=== PATIENT | male | born 1955 | race Caucasian/White ===

== ENCOUNTER 2022-07-31 09:12 | Outpatient (REF) | payer BC, SELFPAY ==
[2022-07-31 11:16] LABS: Appearance Urine Cloudy; Color Urine Yellow; Glucose Urine UA Negative (Negative); Leukocyte Esterase Urine Negative (Negative); Nitrite Urine Negative (Negative); Specific Gravity - Urine 1.025 (1.005-1.025); Urine Blood Negative (Negative); Urine Ketones Negative (Negative); Urine Protein Negative (Neg-Trace)
[2022-07-31 11:18] LABS: MANUAL DIFF FLAG NO
[2022-07-31 11:40] LABS: Estimated Average Glucose 192 mg/dL; Hemoglobin A1c % 8.3 %
[2022-07-31 11:51] LABS: Basophils Absolute Auto 0.1 X10*3/uL (0.0-0.2); Basophils Percent Auto 0.7 % (0-2); Eosinophils Absolute Auto 0.2 X10*3/uL (0.0-0.4); Eosinophils Percent Auto 2.4 % (0-4); Hematocrit 38.8 % (42.0-52.0); Hemoglobin 13.8 g/dl (14.0-18.0); Imm Gran Abs Auto 0.03 X10*3/uL (0.00-0.03); Imm Gran Pct Auto 0.3 % (0.0-0.4); Lymphocytes Absolute Auto 2.9 X10*3/uL (1.2-4.9); Mean Corpuscular HGB Conc 35.6 g/dl (31.0-36.0); Mean Corpuscular Hemoglobin 32.2 pg (27.0-33.0); Mean Corpuscular Volume 90.4 fL (80.0-98.0); Mean Platelet Volume 9.7 fL (9.4-12.4); Monocytes Absolute Auto 0.5 X10*3/uL (0.1-1.2); Monocytes Percent Auto 5.9 % (2-11); Neutrophils Absolute Auto 5.2 x10*3/uL (2.0-8.3); Neutrophils Percent Auto 58.7 % (45-73); Platelet Count 232 X10*3/uL (160-400); Red Blood Count 4.29 X10*6/uL (4.60-5.80); Red Cell Distribution Width 12.6 % (11.0-16.0); White Blood Count 8.9 X10*3/uL (4.8-10.8)
[2022-07-31 11:59] LABS: Creatinine Urine 201.89 mg/dL; Microalbum/Creatinine Ratio Ur 6.4 ug/mg cr
[2022-07-31 12:08] LABS: Alanine Aminotransferase 51 U/L (0-40); Albumin Level 4.3 g/dL (3.5-5.0); Alkaline Phosphatase 52 U/L (39-117); Anion Gap 15 (12-20); Aspartate Amino Transferase 45 U/L (5-37); Bilirubin Total 0.9 mg/dL (0.0-1.0); Blood Urea Nitrogen 14 mg/dL (9-16); Calcium 9.2 mg/dL (8.4-10.2); Carbon Dioxide 31 mmol/L (22-29); Chloride 98 mmol/L (96-108); Cholesterol 130 mg/dL; Estimated Glomerular Filt Rate > 60; Glucose Fasting 176 mg/dL (60-99); HDL Cholesterol 31 mg/dL; Potassium 3.7 mmol/L (3.3-5.1); Sodium 140 mmol/L (135-145); Total Protein 6.8 g/dL (6.5-8.0); Triglycerides 412 mg/dL; Uric Acid 6.8 mg/dL (3.4-7.0)
[2022-07-31 12:16] LABS: TSH reflex Free T4 1.26 uIU/mL (0.32-4.0)
== END 2022-07-31 09:13 | disposition home or self-care (01) ==
LOC: HO.HMGCLDS 09:12
PROVIDERS: PCP Nurse Practitioner Family; Visit Provider Nurse Practitioner Family
DX: E11.9 Type 2 diabetes mellitus without complications (principal); M10.9 Gout, unspecified
CPT/HCPCS: 36415; 80053; 80061; 81003; 82043; 83036; 84443; 84550; 85025

== ENCOUNTER 2022-08-12 08:43 | Outpatient (REF) | payer BC, SELFPAY ==
--- NOTE | ~2022-08-12 | US_ITS ---
EXAMINATION: US ABDOMEN COMPLETE CLINICAL INFORMATION: Abnormal levels of other serum enzymes. COMPARISON: None available. TECHNIQUE: Real-time imaging of the abdominal viscera. FINDINGS: PANCREAS: The pancreas is obscured by overlying gas. ABDOMINAL AORTA: The distal abdominal aorta is normal caliber. The proximal and mid segment is not visualized. INFERIOR VENA CAVA: IVC is unremarkable. LIVER: The liver is normal in size. The liver contour is normal. There is increased liver echogenicity. No focal hepatic lesion. There is no intrahepatic biliary duct dilatation seen. GALLBLADDER: Surgically absent. COMMON BILE DUCT: Normal in caliber measuring 0.4 cm in diameter. RIGHT KIDNEY: There is an anechoic cyst in midpole measuring 0.60 x 0.54 x 0.47 cm. No hydronephrosis or renal calculi. The kidney measures 11.3 cm in maximum dimension. LEFT KIDNEY: There are multiple anechoic cysts seen. The lower pole cyst measures 4.1 x 4.0 x 3.6 cm. Midpole cyst measures 1.0 x 1.1 x 0.96 cm. Slightly complex Bosniak II upper pole cyst measures 6.5 x 3.7 x 4.3 cm. No hydronephrosis or renal calculi. The kidney measures 11.3 cm in maximum dimension. SPLEEN: Normal. The spleen measures 11.3 cm in maximum dimension. FREE FLUID: None. US/US abdomen complete IMPRESSION: 1. Bilateral renal cysts. Complex cyst upper pole left kidney Bosniak type II. No echogenic stones or hydronephrosis. 2. The rest of the abdominal ultrasound is unremarkable.
== END 2022-08-12 08:44 | disposition home or self-care (01) ==
LOC: HO.HMGCX 08:43
PROVIDERS: PCP Nurse Practitioner Family; Visit Provider Nurse Practitioner Family
DX: R74.8 Abnormal levels of other serum enzymes (principal)
CPT/HCPCS: 76700

== ENCOUNTER 2022-08-14 07:23 | Outpatient (REF) | payer BC, SELFPAY ==
[2022-08-16 08:43] LABS: HBS Num1 0.09 mIU/mL (0-7.99); HBc Num1 0.26 S/CO (0.00-0.79); HBsAGNum1 0.31 S/CO (0.00-0.99); Hepatitis A Antibody IgM 0.12 Index (0-0.79); Hepatitis B Core Antibody Nonreactive (Nonreactive); Hepatitis B Surface Antigen Negative (Negative); ~HepC Num1 0.12 S/CO (0.00-0.79); ~Hepatitis A Antibody IgM Nonreactive (Nonreactive); ~Hepatitis B Surface Antibody NONREACTIVE (Nonreactive); ~Hepatitis C Antibody Nonreactive (Nonreactive)
== END 2022-08-14 07:24 | disposition home or self-care (01) ==
LOC: HO.HMGCLDS 07:23
PROVIDERS: PCP Nurse Practitioner Family; Visit Provider Nurse Practitioner Family
DX: R74.8 Abnormal levels of other serum enzymes (principal)
CPT/HCPCS: 36415; 86704; 86706; 86709; 86803; 87340

== ENCOUNTER → 2022-09-11 08:49 | Outpatient (BNVA) | payer BC, SELFPAY | PROVIDERS: PCP Nurse Practitioner Family; Visit Provider Nurse Practitioner Family | DX: N28.1 Cyst of kidney, acquired (principal) ==

== ENCOUNTER 2022-10-07 09:46 | Outpatient (REF) | payer BC, SELFPAY ==
[2022-10-07 11:28] LABS: MANUAL DIFF FLAG NO
[2022-10-07 11:46] LABS: Basophils Absolute Auto 0.1 X10*3/uL (0.0-0.2); Basophils Percent Auto 0.6 % (0-2); Eosinophils Absolute Auto 0.1 X10*3/uL (0.0-0.4); Eosinophils Percent Auto 1.2 % (0-4); Hematocrit 38.3 % (42.0-52.0); Hemoglobin 13.7 g/dl (14.0-18.0); Imm Gran Abs Auto 0.05 X10*3/uL (0.00-0.03); Imm Gran Pct Auto 0.5 % (0.0-0.4); Immature Retic Fraction 18.2 % (2.3-13.4); Lymphocytes Absolute Auto 2.7 X10*3/uL (1.2-4.9); Lymphocytes Percent Auto 24.5 % (20-40); Mean Corpuscular HGB Conc 35.8 g/dl (31.0-36.0); Mean Corpuscular Hemoglobin 32.9 pg (27.0-33.0); Mean Corpuscular Volume 91.8 fL (80.0-98.0); Mean Platelet Volume 9.7 fL (9.4-12.4); Monocytes Absolute Auto 0.7 X10*3/uL (0.1-1.2); Monocytes Percent Auto 6.1 % (2-11); Neutrophils Absolute Auto 7.3 x10*3/uL (2.0-8.3); Neutrophils Percent Auto 67.1 % (45-73); Platelet Count 248 X10*3/uL (160-400); Red Blood Count 4.17 X10*6/uL (4.60-5.80); Retic HGB Equivalent 37.7 pg (30.0-35.0); Reticulocytes Absolute 0.083 X10*6/uL (0.026-0.095); White Blood Count 10.9 X10*3/uL (4.8-10.8)
[2022-10-07 12:14] LABS: Alanine Aminotransferase 35 U/L (0-40); Albumin Level 4.3 g/dL (3.5-5.0); Alkaline Phosphatase 55 U/L (39-117); Anion Gap 13 (12-20); Aspartate Amino Transferase 29 U/L (5-37); Bilirubin Total 0.7 mg/dL (0.0-1.0); Blood Urea Nitrogen 14 mg/dL (9-16); Calcium 9.8 mg/dL (8.4-10.2); Carbon Dioxide 31 mmol/L (22-29); Chloride 100 mmol/L (96-108); Cholesterol 64 mg/dL; Estimated Glomerular Filt Rate > 60; Glucose Fasting 193 mg/dL (60-99); HDL Cholesterol 27 mg/dL; Iron 86 mcg/dL (45-160); LDL Cholesterol Calculated 3 mg/dl; Percent Iron Saturation 24 % (15-50); Potassium 4.3 mmol/L (3.3-5.1); Sodium 140 mmol/L (135-145); Total Iron Binding Capacity 361 mcg/dL (228-428); Total Protein 6.9 g/dL (6.5-8.0); Triglycerides 171 mg/dL; Unsaturated Iron Binding 275 ug/dL
[2022-10-07 12:50] LABS: Ferritin 345 ng/mL (20-250); Folate > 20.0 ng/mL (> or = 4.0); Vitamin B12 1179 pg/mL (200-900)
== END 2022-10-07 09:47 | disposition home or self-care (01) ==
LOC: HO.HMGCLDS 09:46
PROVIDERS: PCP Nurse Practitioner Family; Visit Provider Nurse Practitioner Family
DX: D64.9 Anemia, unspecified (principal); E78.5 Hyperlipidemia, unspecified
CPT/HCPCS: 36415; 80053; 80061; 82607; 82728; 82746; 83540; 85025; 85045

== ENCOUNTER 2022-10-21 09:52 | Outpatient (REF) | payer BC, SELFPAY ==
[2022-10-21 11:15] LABS: MANUAL DIFF FLAG NO
[2022-10-21 11:31] LABS: Basophils Absolute Auto 0.1 X10*3/uL (0.0-0.2); Basophils Percent Auto 0.7 % (0-2); Eosinophils Absolute Auto 0.1 X10*3/uL (0.0-0.4); Eosinophils Percent Auto 1.3 % (0-4); Hematocrit 39.3 % (42.0-52.0); Hemoglobin 13.7 g/dl (14.0-18.0); Imm Gran Abs Auto 0.04 X10*3/uL (0.00-0.03); Imm Gran Pct Auto 0.4 % (0.0-0.4); Lymphocytes Absolute Auto 2.4 X10*3/uL (1.2-4.9); Lymphocytes Percent Auto 23.2 % (20-40); Mean Corpuscular HGB Conc 34.9 g/dl (31.0-36.0); Mean Corpuscular Hemoglobin 32.3 pg (27.0-33.0); Mean Corpuscular Volume 92.7 fL (80.0-98.0); Mean Platelet Volume 9.8 fL (9.4-12.4); Monocytes Absolute Auto 0.6 X10*3/uL (0.1-1.2); Monocytes Percent Auto 5.4 % (2-11); Neutrophils Absolute Auto 7.2 x10*3/uL (2.0-8.3); Platelet Count 229 X10*3/uL (160-400); Red Blood Count 4.24 X10*6/uL (4.60-5.80); Red Cell Distribution Width 12.8 % (11.0-16.0); White Blood Count 10.4 X10*3/uL (4.8-10.8)
== END 2022-10-21 09:53 | disposition home or self-care (01) ==
LOC: HO.HMGCLDS 09:52
PROVIDERS: PCP Nurse Practitioner Family; Visit Provider Nurse Practitioner Family
DX: D64.9 Anemia, unspecified (principal)
CPT/HCPCS: 36415; 85025

== ENCOUNTER 2023-01-16 08:13 | Outpatient (REF) | payer MEDICARE, SELFPAY ==
[2023-01-16 11:32] LABS: MANUAL DIFF FLAG NO
[2023-01-16 11:42] LABS: Basophils Absolute Auto 0.1 X10*3/uL (0.0-0.2); Basophils Percent Auto 0.5 % (0-2); Eosinophils Absolute Auto 0.1 X10*3/uL (0.0-0.4); Eosinophils Percent Auto 1.5 % (0-4); Hematocrit 36.3 % (42.0-52.0); Hemoglobin 12.7 g/dl (14.0-18.0); Imm Gran Abs Auto 0.04 X10*3/uL (0.00-0.03); Imm Gran Pct Auto 0.4 % (0.0-0.4); Lymphocytes Absolute Auto 2.7 X10*3/uL (1.2-4.9); Lymphocytes Percent Auto 29.1 % (20-40); Mean Corpuscular Hemoglobin 32.2 pg (27.0-33.0); Mean Corpuscular Volume 91.9 fL (80.0-98.0); Mean Platelet Volume 9.9 fL (9.4-12.4); Monocytes Absolute Auto 0.6 X10*3/uL (0.1-1.2); Monocytes Percent Auto 6.9 % (2-11); Neutrophils Absolute Auto 5.7 x10*3/uL (2.0-8.3); Neutrophils Percent Auto 61.6 % (45-73); Platelet Count 200 X10*3/uL (160-400); Red Blood Count 3.95 X10*6/uL (4.60-5.80); Red Cell Distribution Width 12.7 % (11.0-16.0); White Blood Count 9.2 X10*3/uL (4.8-10.8)
[2023-01-16 12:06] LABS: Appearance Urine Clear; Color Urine Yellow; Glucose Urine UA Negative (Negative); Leukocyte Esterase Urine Negative (Negative); Nitrite Urine Negative (Negative); Specific Gravity - Urine 1.025 (1.005-1.025); Urine Blood Negative (Negative); Urine Ketones Trace mg/dL (Negative); Urine Protein Negative (Neg-Trace)
[2023-01-16 12:21] LABS: Alanine Aminotransferase 43 U/L (0-40); Alkaline Phosphatase 48 U/L (39-117); Anion Gap 13 (12-20); Aspartate Amino Transferase 34 U/L (5-37); Bilirubin Total 0.6 mg/dL (0.0-1.0); Blood Urea Nitrogen 18 mg/dL (9-16); Calcium 9.8 mg/dL (8.4-10.2); Carbon Dioxide 29 mmol/L (22-29); Chloride 97 mmol/L (96-108); Estimated Glomerular Filt Rate > 60; Glucose Fasting 220 mg/dL (60-99); Potassium 3.6 mmol/L (3.3-5.1); Sodium 135 mmol/L (135-145); Total Protein 6.9 g/dL (6.5-8.0)
[2023-01-16 12:38] LABS: TSH reflex Free T4 0.98 uIU/mL (0.32-4.0)
== END 2023-01-16 08:14 | disposition home or self-care (01) ==
LOC: HO.HMGCLDS 08:13
PROVIDERS: PCP Nurse Practitioner Family; Visit Provider Nurse Practitioner Family
DX: D64.9 Anemia, unspecified (principal); E11.9 Type 2 diabetes mellitus without complications; I10 Essential (primary) hypertension
CPT/HCPCS: 36415; 80053; 81003; 84443; 85025

== ENCOUNTER 2023-01-28 08:45 | Outpatient (AMB) | payer MEDICARE, SELFPAY ==
--- NOTE | 2023-01-28 09:10 | A.OFFPC_ITS ---
Vital Signs 01/28/23 09:11 Height 5 ft 9 in Weight 192 lb BMI 28.4 BP 130/78 Blood Pressure Location Rt brachial Position Sitting Pulse 61 Pulse Source Pulse Oximeter Pulse Oximetry (%) 98 Oxygen Delivery Method Room Air Intake Visit Reasons: Annual PE Allergies Penicillins Allergy (Unknown, Verified 01/28/23 09:12) Unknown Medication List - Last Reconciled 01/28/23 by CATARINO Richardson allopurinol 300 mg PO DAILY atenolol-chlorthalidone 50-25 mg 1 tab PO DAILY empagliflozin (Jardiance) 10 mg PO DAILY 30 days lisinopril 20 mg PO DAILY metformin 1,000 mg PO BID rosuvastatin (Crestor) 10 mg PO DAILY sildenafil 100 mg PO PRN Tobacco use date assessed: 01/28/23 Fall risk assessment: No Falls in past year Last assessed Fall Risk: 01/28/23 Dental Screening Dental Screen Date: 01/28/23 Did you have a dental visit in the last 12 months?: Yes Did you have a dental problem in the last 6 months where you did not have access to dental care?: No Was dental information given to patient?: Patient has dentist HPI Annual PE HPI Details Pt is here for a PE. Labs were already performed. Pt reports having a colonoscopy within the last couple years, missing notes. Due for PSA, will order. Denies dribbling with urination, weak stream, and nocturia. Pt sees urology. Pt is a diabetic, on an JEZ and a statin. A1C in office today is 9.0. Microalbumin is up to date. Denies polyuria, polydipsia, and neuropathy. Pt denies any signs and symptoms of hypoglycemia and does know how to correct it. Will start jardiance 10mg. Eye exam is up to date. Pt will start working on his diet. [facility] Surgical History H/O umbilical hernia repair Social History Housing: Apartment Patient Tobacco Use Status: Former Tobacco user Quit Date: 2002 e-Cigarette/Vaping Use: Never Used Second Hand Smoke Exposure: No service: No Current occupational status: retired Cognitive needs: No Hearing needs: No Vision needs: No Questionnaire Thrive Questionnaire Date Thrive assessed: 07/25/22 GURINDER-7 AMB Questionnaire GURINDER-7 Date GURINDER - 7 assessed: 07/25/22 Source: Developed by Drs. Guy Gilmore, Shelia Warner, Paul Dumont and colleagues, with an educational rose from [employer]. Review of Systems Const Denies chills and Denies fever(s) Eyes Denies blurry vision ENT Denies vertigo, Denies dizziness and Denies sore throat Card Denies chest pain at rest, Denies chest pain with activity, Denies diaphoresis, Denies dyspnea and Denies dyspnea on exertion Resp Denies cough, Denies dyspnea, Denies dyspnea on exertion and Denies wheezing GI Denies abdominal pain, Denies melena, Denies hematochezia, Denies constipation, Denies diarrhea and Denies loose stools Denies hematuria Musc Denies numbness and Denies tingling Skin/Breast Denies lesions Neuro Denies vertigo, Denies dizziness, Denies numbness and Denies tingling Psych Denies anxiety, Denies depression, Denies homicidal ideation, Denies suicidal ideation and Denies other (substance abuse) Aller/Immun Denies wheezing Physical exam (Primary Care) Vital Signs: Last Vital Signs Pulse 61 01/28/23 09:11 BP 130/78 01/28/23 09:11 Pulse Ox 98 01/28/23 09:11 Oxygen Delivery Method Room Air 01/28/23 09:11 BMI result Body Mass Index 28.4 Tobacco/Smoking Status: Tobacco use Status Tobacco use date assessed 01/28/23 01/28/23 09:15 Patient Tobacco Use Status Former Tobacco user 01/28/23 09:12 e-Cigarette/Vaping Use Never Used 01/28/23 09:12 Thrive Assessment: Date of Thrive Assessment Date Thrive assessed 07/25/22 01/28/23 09:12 Const General: cooperative Nutritional Appearance: well nourished Orientation/consciousness: patient oriented x3 HENMT Head: Yes normal to inspection, Yes normocephalic and Yes atraumatic Ears: TM's normal bilaterally Eyes General: appearance normal, both eyes and all related structures Alignment and Position: alignment normal and position normal Neck Neck: Yes normal visual inspection and Yes no lymphadenopathy Thyroid: Thyroid normal Resp Effort & Inspection: normal respiratory effort Auscultation: clear to auscultation bilaterally Cardio Rate: regular rate Rhythm: regular rhythm Heart sounds: S1 normal heart sound present, S2 normal heart sound present and no murmurs GI Palpation (GI): Soft to palpation and nontender Auscultation: normal bowel sounds Other: JESSICA: prostate enlarged, no nodules palpated Male General Exam: Yes normal external exam Penis: normal penis Scrotum: scrotum normal, testes descended bilaterally and no inguinal hernias Testes: no testicular mass Skin Rashes: no rashes Neuro General: patient oriented x3, moves all extremities, no focal motor deficits and deep tendon reflexes 2+ bilaterally Romberg Test: Negative Extrem Other: bilat feet: + sensation with use of monofilament, elongated toenails Psych Appearance: grossly normal Mental Status: mental status grossly normal Speech and movement: Normal speech and movement present Affect: normal affect Attitude: cooperative Thought process: Normal thought process present Thought content: Normal thought content present Insight: Good insight present (Psych) Judgement: Good judgement present (Psych) Results AMB Hemoglobin A1c AMB Hemoglobin A1c 9.0 % Last Edit by Michelle Gonzalez CMA on 01/28/23 10: 08 Results Reviewed Results Reviewed: Laboratory Last Values Hgb A1c (Clinic) 9.0 % (4.0-6.0) H 01/28/23 09:45 Assessment and Plan Assessment & Plan (1) Screening for prostate cancer: Code(s): Z12.5 - Encounter for screening for malignant neoplasm of prostate (2) Physical exam: Code(s): Z00.00 - Encounter for general adult medical examination without abnormal findings (3) Dyslipidemia: Code(s): E78.5 - Hyperlipidemia, unspecified (4) Diabetes: Code(s): E11.9 - Type 2 diabetes mellitus without complications Plan The patient agreed to the use of a certified medical assistant for this encounter. Scribed for CATARINO Sarabia by floresita Smith scribe, on 01/28/2023 at 09:30 EST. Orders: Orders AMB Hemoglobin A1c Today E11.9 - Type 2 diabetes mellitus without complications, Z00.00 - Encounter for general adult medical examination without abnormal findings AMB EKG-In Office Today Z00.00 - Encounter for general adult medical examination without abnormal findings Lipid Panel Today E11.9 - Type 2 diabetes mellitus without complications, E78.5 - Hyperlipidemia, unspecified Prostate Specific Antigen Scr Today Z12.5 - Encounter for screening for malignant neoplasm of prostate Medications: New empagliflozin (Jardiance) 10 mg PO DAILY 30 tabs 3RF 30 days Coding Level of Care Code Est Pt Prev Care >65y(85907) Diagnoses Screening for prostate cancer Z12.5 Physical exam Z00.00 Dyslipidemia E78.5 Diabetes E11.9
[2023-01-28 09:11] VITALS: BP 130/78; PULSE 61; O2SAT 98; BMI 28.4
== END 2023-01-28 10:20 | disposition home or self-care (01) ==
PROVIDERS: PCP Nurse Practitioner Family; Visit Provider Nurse Practitioner Family
DX: Z00.00 Encounter for general adult medical examination without abnormal findings (principal); E78.5 Hyperlipidemia, unspecified; E11.9 Type 2 diabetes mellitus without complications
CPT/HCPCS: 83036; 99397

== ENCOUNTER 2023-02-05 06:49 | Outpatient (REF) | payer MEDICARE, SELFPAY ==
[2023-02-05 12:15] LABS: Cholesterol 70 mg/dL (<200); HDL Cholesterol 26 mg/dL (>40); LDL Cholesterol Calculated -7 mg/dL (<100); Triglycerides 257 mg/dL (<150)
[2023-02-05 12:39] LABS: Prostate Specific Antigen Scr 1.71 ng/mL (<0.05-4.0)
== END 2023-02-05 06:50 | disposition home or self-care (01) ==
LOC: HO.HMGCLDS 06:49
PROVIDERS: PCP Nurse Practitioner Family; Visit Provider Nurse Practitioner Family
DX: Z12.5 Encounter for screening for malignant neoplasm of prostate (principal); E78.5 Hyperlipidemia, unspecified; E11.9 Type 2 diabetes mellitus without complications
CPT/HCPCS: 36415; 80061; 84153

== ENCOUNTER 2023-02-19 08:11 | Outpatient (REF) | payer MEDICARE, SELFPAY ==
[2023-02-19 11:21] LABS: MANUAL DIFF FLAG NO
[2023-02-19 11:38] LABS: Basophils Absolute Auto 0.1 X10*3/uL (0.0-0.2); Basophils Percent Auto 0.6 % (0-2); Eosinophils Absolute Auto 0.2 X10*3/uL (0.0-0.4); Eosinophils Percent Auto 1.6 % (0-4); Hemoglobin 13.3 g/dl (14.0-18.0); Imm Gran Abs Auto 0.03 X10*3/uL (0.00-0.03); Imm Gran Pct Auto 0.3 % (0.0-0.4); Lymphocytes Absolute Auto 2.9 X10*3/uL (1.2-4.9); Lymphocytes Percent Auto 30.5 % (20-40); Mean Corpuscular HGB Conc 34.1 g/dl (31.0-36.0); Mean Corpuscular Volume 93.8 fL (80.0-98.0); Mean Platelet Volume 9.8 fL (9.4-12.4); Monocytes Absolute Auto 0.7 X10*3/uL (0.1-1.2); Monocytes Percent Auto 7.8 % (2-11); Neutrophils Absolute Auto 5.6 x10*3/uL (2.0-8.3); Neutrophils Percent Auto 59.2 % (45-73); Platelet Count 216 X10*3/uL (160-400); Red Blood Count 4.16 X10*6/uL (4.60-5.80); White Blood Count 9.5 X10*3/uL (4.8-10.8)
[2023-02-19 12:09] LABS: Iron 62 mcg/dL (45-160); Percent Iron Saturation 19 % (15-50); Total Iron Binding Capacity 330 mcg/dL (228-428); Unsaturated Iron Binding 268 ug/dL
[2023-02-19 12:10] LABS: Ferritin 279 ng/mL (20-250)
[2023-02-19 12:26] LABS: Vitamin B12 1940 pg/mL (200-900)
[2023-02-21 23:23] LABS: Hematocrit 37.9 % (38.5-50.0); Hemoglobin 13.3 g/dL (13.2-17.1); MCH 32.8 pg (27.0-33.0); MCV 93.6 fL (80.0-100.0); RBC 4.05 Million/uL (4.20-5.80); RDW 13.1 % (11.0-15.0)
== END 2023-02-19 08:12 | disposition home or self-care (01) ==
LOC: HO.HMGCLDS 08:11
PROVIDERS: PCP Nurse Practitioner Family; Visit Provider Nurse Practitioner Family
DX: D64.9 Anemia, unspecified (principal)
CPT/HCPCS: 36415; 82607; 82728; 82746; 83020; 83540; 85014; 85018; 85025; 85041

== ENCOUNTER 2023-02-25 08:20 | Outpatient (REF) | payer MEDICARE, SELFPAY ==
--- NOTE | ~2023-02-25 | US_ITS ---
EXAMINATION: US RETROPERITONEAL LIMITED (RENAL ONLY) CLINICAL INFORMATION: Cyst of kidney, acquired. COMPARISON: Ultrasound abdomen complete 08/12/2022. TECHNIQUE: Real-time imaging of the kidneys. FINDINGS: RIGHT KIDNEY: 10.8 x 6.4 x 6.3 cm (SAG x AP x TRV). The kidney is normal in size, contour, and echogenicity. Renal cortical thickness is normal. No renal calculi or hydronephrosis. Simple cysts in the mid and lower kidney. No follow-up imaging is recommended. LEFT KIDNEY: 11.9 x 6.6 x 5.5 cm (SAG x AP x TRV). The kidney is normal in size, contour, and echogenicity. Renal cortical thickness is normal. No renal calculi or hydronephrosis. Thinly septated cysts in the mid and upper kidney (Bosniak 2). Simple cyst in the lower kidney. No follow-up imaging is recommended. US/US renal BI IMPRESSION: Benign bilateral renal cysts. No follow-up imaging is recommended.
== END 2023-02-25 08:21 | disposition home or self-care (01) ==
LOC: HO.HMGCX 08:20
PROVIDERS: PCP Nurse Practitioner Family; Visit Provider Nurse Practitioner Family
DX: N28.1 Cyst of kidney, acquired (principal)
CPT/HCPCS: 76775

== ENCOUNTER 2023-03-12 08:25 | Outpatient (AMB) | payer MEDICARE, SELFPAY ==
--- NOTE | 2023-03-12 08:30 | MHC.OFFVIS ---
Intake Intake Visit Reasons: 6m/US(set) Intake Note: Patient is present for initial visit cyst of kidney Urology Medications: none Blood Thinner: none Family Centered Specialist Required: No Accompanied by: Self / Same As Patient Allergies Penicillins Allergy (Unknown, Verified 03/12/23 08:59) Unknown Medication List - Last Reconciled 03/12/23 by LEV CabralesP- allopurinol 300 mg PO DAILY atenolol-chlorthalidone 50-25 mg 1 tab PO DAILY empagliflozin (Jardiance) 10 mg PO DAILY 30 days lisinopril 20 mg PO DAILY metformin 1,000 mg PO BID rosuvastatin (Crestor) 10 mg PO DAILY sildenafil 100 mg PO PRN HPI HPI Comments History of Present Illness Details Eugene is a pleasant 67-year-old male patient of Dr. Hadley. He presents to the office today for follow-up of his renal cyst. Recent renal imaging results reviewed with the patient today. Right kidney with no hydronephrosis or calculi. Simple cysts in the mid and lower kidney. No follow-up imaging is recommended per radiology report. Left kidney with no calculi or hydronephrosis. Thinly septated cysts in the mid and upper kidney (Bosniak 2). Simple cyst in the lower kidney. No follow-up imaging is recommended per radiology report. PSA 02/08--1.7. When asked patient reports to be doing and feeling well. Discussed at length renal cyst and classifications of the cyst. When asked patient denies any urinary issues or concerns. He denies urinary urgency, urinary frequency, incontinence, hematuria, dysuria, foul smelling urine, flank pain, fever, and or chills. He does report changes to his urinary stream and nocturia x1 however states this is not bothersome. In office urinalysis within normal limits. He is happy with his current voiding parameters. [facility] Surgical History H/O umbilical hernia repair Social History Housing: Apartment Patient Tobacco Use Status: Former Tobacco user Quit Date: 2002 e-Cigarette/Vaping Use: Never Used Second Hand Smoke Exposure: No service: No Current occupational status: retired Cognitive needs: No Hearing needs: No Vision needs: No Review of Systems Const All systems reviewed & are unremarkable except as noted in HPI and below Reports no additional complaints Eyes Reports no additional complaints ENT Reports no additional complaints Card Reports no additional complaints Resp Reports no additional complaints GI Reports no additional complaints Reports as per HPI Musc Reports no additional complaints Neuro Reports no additional complaints Psych Reports no additional complaints Endo Reports no additional complaints Crispin/Lymph Reports no additional complaints Aller/Immun Reports no additional complaints Physical Exam Const General: cooperative, healthy appearing, comfortable, no acute distress, well developed, alert and awake Orientation/consciousness: patient oriented x3 Limitations: no limitations HEENT Head: Yes normal to inspection, Yes normocephalic and Yes atraumatic Ears: hearing grossly normal bilaterally Eyes General: appearance normal, both eyes and all related structures Neck Neck: Yes normal visual inspection and Yes trachea midline Chest Chest palpation & inspection: normal inspection of the chest Resp Effort & Inspection: normal respiratory effort and able to speak in complete sentences Cardio Rate: regular rate GI Inspection: Yes normal to inspection General: Yes no CVA tenderness Back/Spine/Pelvis Back: no CVA tenderness Skin General skin exam: no rashes or lesions noted Neuro General: patient oriented x3 Extrem General: Yes normal to inspection Psych Appearance: grossly normal and well kempt Mental Status: mental status grossly normal Speech and movement: Normal speech and movement present and Clear speech present Affect: normal affect Attitude: cooperative Thought process: Normal thought process present Thought content: Normal thought content present Insight: Good insight present (Psych) Judgement: Good judgement present (Psych) Results AMB Urinalysis, Automated UA Leukoctes 0 Mateo/uL Last Edit by [employer] on 03/12/23 08:45 UA Nitrite Negative Last Edit by [employer] on 03/12/23 08:45 UA Urobilinogen 0.2 mg/dL Last Edit by [employer] on 03/12/23 08:45 UA Protein 0 mg/dL Last Edit by [employer] on 03/12/23 08:45 UA pH 5.5 Last Edit by Pluristem Therapeuticsriccardo GarciaEnviroo on 03/12/23 08:45 UA Blood 0 Ladarius/uL Last Edit by [employer] on 03/12/23 08:45 UA Specific [place] 1.020 Last Edit by [employer] on 03/12/23 08:45 UA Ketone Positive Last Edit by Belinda Quevedo on 03/12/23 08:45 UA Bilirubin 0 mg/dL Last Edit by Belinda Quevedo on 03/12/23 08:45 UA Glucose 1000 mg/dL Last Edit by Belinda Quevedo on 03/12/23 08:45 Results Reviewed Results Reviewed: Laboratory Last Values Urine pH (Auto) 5.5 03/12/23 08:42 Specific [place] (Auto) 1.020 03/12/23 08:42 Urine Protein (Auto) 0 mg/dL 03/12/23 08:42 Glucose (UA)(Auto) 1000 mg/dL 03/12/23 08:42 Urine Ketones (Auto) Positive 03/12/23 08:42 Urine Blood (Auto) 0 Ladarius/uL 03/12/23 08:42 Urine Nitrite (Auto) Negative 03/12/23 08:42 Urine Bilirubin (Auto) 0 mg/dL 03/12/23 08:42 Urine Urobilinogen (Auto) 0.2 mg/dL 03/12/23 08:42 Leukocyte Esterase (Auto) 0 Mateo/uL 03/12/23 08:42 Date of Service: 02/25/23 EXAMINATION: US RETROPERITONEAL LIMITED (RENAL ONLY) FINDINGS: RIGHT KIDNEY: 10.8 x 6.4 x 6.3 cm (SAG x AP x TRV). The kidney is normal in size, contour, and echogenicity. Renal cortical thickness is normal. No renal calculi or hydronephrosis. Simple cysts in the mid and lower kidney. No follow-up imaging is recommended. LEFT KIDNEY: 11.9 x 6.6 x 5.5 cm (SAG x AP x TRV). The kidney is normal in size, contour, and echogenicity. Renal cortical thickness is normal. No renal calculi or hydronephrosis. Thinly septated cysts in the mid and upper kidney (Bosniak 2). Simple cyst in the lower kidney. No follow-up imaging is recommended. US/US renal BI IMPRESSION: Benign bilateral renal cysts. No follow-up imaging is recommended. Assessment & Plan Assessment & Plan (1) Complex renal cyst: Code(s): N28.1 - Cyst of kidney, acquired Plan In office urinalysis within normal limits. Recent renal imaging results reviewed with the patient today as noted above Will continue with surveillance imaging as discussed Patient denies any urological issues or concerns at this time. Renal ultrasound in one year PSA in one year. Follow-up in one year with imaging and lab to be completed prior; or sooner with any questions, concerns, and or issues. Orders: Orders AMB Urinalysis Automated Today Z13.9 - Encounter for screening, unspecified US renal BI 364 Days N28.1 - Cyst of kidney, acquired Prostate Specific Antigen 365 Days Z12.5 - Encounter for screening for malignant neoplasm of prostate Patient Instructions: The patient had an opportunity to ask questions regarding the treatment plan. All questions were answered. Physical exam, labs, and imaging were discussed and reviewed in detail. As well as risks, benefits, and discussion of treatment choices. No major barriers to understanding were identified. The patient expressed understanding and agreement with the above treatment plan. The patient was made aware they should contact our office by phone for worsening of their current condition, the appearance of new symptoms, or with any questions or concerns. Compliance is encouraged with any medications and follow up testing that is ordered. It is a privilege to be allowed the opportunity to participate in? your urological care.? Again, if you have any questions or concerns If you have any questions or concerns please do not hesitate to contact me. The office is [phone]. This note is constructed using voice recognition software. While every effort has been made to ensure accuracy director internal control errors may have been included. Yours sincerely, CATARINO Cabrales Coding Level of Care Code Est Pt Level 3 (56550) Diagnoses Complex renal cyst N28.1
== END 2023-03-12 09:14 | disposition home or self-care (01) ==
PROVIDERS: Visit Provider Nurse Practitioner Family
DX: Z13.9 Encounter for screening, unspecified (principal); N28.1 Cyst of kidney, acquired
CPT/HCPCS: 99213

== ENCOUNTER → 2023-03-12 08:25 | Outpatient (BNVA) | payer BC, SELFPAY | PROVIDERS: Visit Provider Nurse Practitioner Family | DX: N28.1 Cyst of kidney, acquired (principal) | CPT/HCPCS: 81003; 99212 ==

== ENCOUNTER 2023-05-21 08:59 | Outpatient (REF) | payer MEDICARE, SELFPAY ==
[2023-05-21 11:44] LABS: Appearance Urine Clear; Color Urine Yellow; Glucose Urine UA >=1000 mg/dL (Negative); Leukocyte Esterase Urine Negative (Negative); Nitrite Urine Negative (Negative); Specific Gravity - Urine >= 1.030 (1.005-1.025); UMIC TRIGGER UACC YES; Urine Blood Negative (Negative); Urine Ketones Negative (Negative); Urine Protein Negative (Neg-Trace)
[2023-05-21 12:02] LABS: MANUAL DIFF FLAG NO
[2023-05-21 12:07] LABS: Basophils Absolute Auto 0.1 X10*3/uL (0.0-0.2); Basophils Percent Auto 0.6 % (0-2); Eosinophils Absolute Auto 0.2 X10*3/uL (0.0-0.4); Eosinophils Percent Auto 1.8 % (0-4); Hematocrit 44.3 % (42.0-52.0); Hemoglobin 14.9 g/dl (14.0-18.0); Imm Gran Abs Auto 0.02 X10*3/uL (0.00-0.03); Imm Gran Pct Auto 0.2 % (0.0-0.4); Lymphocytes Absolute Auto 2.4 X10*3/uL (1.2-4.9); Mean Corpuscular HGB Conc 33.6 g/dl (31.0-36.0); Mean Corpuscular Hemoglobin 30.8 pg (27.0-33.0); Mean Corpuscular Volume 91.7 fL (80.0-98.0); Mean Platelet Volume 9.6 fL (9.4-12.4); Monocytes Absolute Auto 0.6 X10*3/uL (0.1-1.2); Monocytes Percent Auto 6.4 % (2-11); Neutrophils Absolute Auto 5.9 x10*3/uL (2.0-8.3); Platelet Count 192 X10*3/uL (160-400); Red Blood Count 4.83 X10*6/uL (4.60-5.80); Red Cell Distribution Width 12.9 % (11.0-16.0); White Blood Count 9.1 X10*3/uL (4.8-10.8)
[2023-05-21 12:20] LABS: Bacteria Urine None Seen (None Seen); Hyaline Casts Urine 0-2 /LPF (0-2); RBC Urine 0-2 /HPF (0-2); Squamous Epithelial Cell Urine 0-2 /HPF (0-2); WBC Urine 0-5 /HPF (0-5)
[2023-05-21 12:40] LABS: Alanine Aminotransferase 26 U/L (0-40); Albumin Level 4.5 g/dL (3.5-5.0); Alkaline Phosphatase 46 U/L (39-117); Anion Gap 15 (12-20); Aspartate Amino Transferase 19 U/L (5-37); Bilirubin Total 0.5 mg/dL (0.0-1.0); Blood Urea Nitrogen 20 mg/dL (9-16); Calcium 10.5 mg/dL (8.4-10.2); Carbon Dioxide 27 mmol/L (22-29); Chloride 100 mmol/L (96-108); Cholesterol 85 mg/dL (<200); Estimated Glomerular Filt Rate > 60; Glucose Fasting 176 mg/dL (60-99); HDL Cholesterol 28 mg/dL (>40); Iron 78 mcg/dL (45-160); LDL Cholesterol Calculated 12 mg/dL (<100); Percent Iron Saturation 21 % (15-50); Potassium 3.9 mmol/L (3.3-5.1); Sodium 138 mmol/L (135-145); Total Iron Binding Capacity 365 mcg/dL (228-428); Total Protein 7.5 g/dL (6.5-8.0); Triglycerides 226 mg/dL (<150); Unsaturated Iron Binding 287 ug/dL
[2023-05-21 12:56] LABS: Folate 15.6 ng/mL (> or = 4.0); Vitamin B12 541 pg/mL (200-900)
[2023-05-21 13:00] LABS: Ferritin 106 ng/mL (20-250); TSH reflex Free T4 0.93 uIU/mL (0.32-4.0)
== END 2023-05-21 09:00 | disposition home or self-care (01) ==
LOC: HO.HMGCLDS 08:59
PROVIDERS: PCP Nurse Practitioner Family; Visit Provider Nurse Practitioner Family
DX: E11.9 Type 2 diabetes mellitus without complications (principal); I10 Essential (primary) hypertension; D64.9 Anemia, unspecified
CPT/HCPCS: 36415; 80053; 80061; 81001; 82607; 82728; 82746; 83540; 84443; 85025

== ENCOUNTER 2023-05-29 09:32 | Outpatient (AMB) | payer MEDICARE, BC, SELFPAY ==
--- NOTE | 2023-05-29 09:34 | MHC.PC.OV ---
Vital Signs 05/29/23 09:38 Weight 188 lb BP 112/80 Blood Pressure Location Lt brachial Position Sitting Pulse 63 Pulse Source Pulse Oximeter Pulse Oximetry (%) 97 Oxygen Delivery Method Room Air Intake Visit Reasons: 4 Month follow up Intake Note: Patient here for diabetes f/u. pt states he would like to talk about a pain in right upper arm. He also stated his sugars have been between 140-170's. Allergies Penicillins Allergy (Unknown, Verified 05/29/23 09:41) Unknown Medication List - Last Reconciled 05/29/23 by CATARINO Richardson allopurinol 300 mg PO DAILY atenolol-chlorthalidone 50-25 mg 1 tab PO DAILY empagliflozin 25 mg PO DAILY 30 days lisinopril 20 mg PO DAILY metformin 1,000 mg PO BID rosuvastatin (Crestor) 10 mg PO DAILY sildenafil 100 mg PO PRN Tobacco use date assessed: 05/29/23 Fall risk assessment: No Falls in past year Last assessed Fall Risk: 05/29/23 Dental Screening Dental Screen Date: 05/29/23 Did you have a dental visit in the last 12 months?: Yes Did you have a dental problem in the last 6 months where you did not have access to dental care?: No Was dental information given to patient?: Patient has dentist HPI 4 Month follow up HPI Details Pt is a diabetic, on an JEZ and a statin. A1C in office today is 8.0. Microalbumin is up to date. Denies polyuria, polydipsia, and neuropathy. Pt denies any signs and symptoms of hypoglycemia and does know how to correct it. Pt reports that his blood sugar has been ranging from 140s-170s. Will increase jardiance from 10mg to 25mg. Eye exam is up to date, according to pt. [facility] Surgical History H/O umbilical hernia repair Social History Housing: Apartment Patient Tobacco Use Status: Former Tobacco user Quit Date: 2002 e-Cigarette/Vaping Use: Never Used Second Hand Smoke Exposure: No service: No Current occupational status: retired Cognitive needs: No Hearing needs: No Vision needs: No Questionnaire Thrive Questionnaire Date Thrive assessed: 07/25/22 GURINDER-7 AMB Questionnaire GURINDER-7 Date GURINDER - 7 assessed: 07/25/22 Source: Developed by Drs. Guy Gilmore, Shelia Warner, Paul Dumont and colleagues, with an educational rose from [employer]. Review of Systems Const Reports as per HPI Physical exam (Primary Care) Vital Signs: Last Vital Signs Pulse 63 05/29/23 09:38 BP 112/80 05/29/23 09:38 Pulse Ox 97 05/29/23 09:38 Oxygen Delivery Method Room Air 05/29/23 09:38 Tobacco/Smoking Status: Tobacco use Status Tobacco use date assessed 05/29/23 05/29/23 09:43 Patient Tobacco Use Status Former Tobacco user 05/29/23 09:36 e-Cigarette/Vaping Use Never Used 05/29/23 09:36 Thrive Assessment: Date of Thrive Assessment Date Thrive assessed 07/25/22 05/29/23 09:36 Const General: cooperative Orientation/consciousness: patient oriented x3 Resp Effort & Inspection: normal respiratory effort Auscultation: clear to auscultation bilaterally Cardio Rate: regular rate Rhythm: regular rhythm Heart sounds: S1 normal heart sound present and S2 normal heart sound present Neuro General: patient oriented x3 Extrem Other: bilat feet: + sensation with use of monofilament, onychomycosis noted especially to big toenails Psych Appearance: grossly normal Mental Status: mental status grossly normal Speech and movement: Normal speech and movement present Affect: normal affect Attitude: cooperative Thought process: Normal thought process present Thought content: Normal thought content present Insight: Good insight present (Psych) Judgement: Good judgement present (Psych) Results AMB Hemoglobin A1c AMB Hemoglobin A1c 8.0 % Last Edit by VOI Oliva on 05/29/23 10:21 Immunizations pneumoc 20-gautam conj-dip cr(PF) 0.5 mL IM syringe Performing Provider: CATARINO Richardson Performing Location: [facility] Administered by: OVI Oliva on 05/29/23 10:19 Dose Route Admin Location Dispensed Lot Number Expiration Date NDC Waistband Setter Lockstitch 0.5 mL IM Left Deltoid 0.5 mL [id number] 06/19/24 WYETH/PFIZER VIS Given Date VIS Provided VIS Publication Date 05/29/23 Single Vaccine 21 Eligibility Eligibility Date Funding Source Not VFC Eligible 05/29/23 Private Results Reviewed Results Reviewed: Laboratory Last Values Hgb A1c (Clinic) 8.0 % (4.0-6.0) H 05/29/23 10:20 Assessment and Plan Assessment & Plan (1) Diabetes: Code(s): E11.9 - Type 2 diabetes mellitus without complications Plan: Increasing jardiance from 10mg to 25mg Plan The patient agreed to the use of a caregivers non medical for this encounter. Scribed for RONNELL Sarabia- by Kassidy Sarah caregivers non medical, on 05/29/2023 at 09:50 EST. Orders: Orders Pneumococcal 20 Immunization Today Z23 - Encounter for immunization AMB Hemoglobin A1c Today E11.9 - Type 2 diabetes mellitus without complications Medications: Changed From empagliflozin (Jardiance) 10 mg PO DAILY 30 days 30 tabs 3RF To empagliflozin 25 mg PO DAILY 30 tabs 3RF 30 days Coding Level of Care Code Est Pt Level 3 (22200) Diagnoses Diabetes E11.9
[2023-05-29 09:38] VITALS: BP 112/80; PULSE 63; O2SAT 97
== END 2023-05-29 10:55 | disposition home or self-care (01) ==
PROVIDERS: PCP Nurse Practitioner Family; Visit Provider Nurse Practitioner Family
DX: E11.9 Type 2 diabetes mellitus without complications (principal); Z23 Encounter for immunization
CPT/HCPCS: 83036; 90471; 90677; 99213

== ENCOUNTER 2023-09-17 07:54 | Outpatient (REF) | payer MEDICARE, SELFPAY ==
[2023-09-17 10:36] LABS: MANUAL DIFF FLAG NO
[2023-09-17 10:40] LABS: Appearance Urine Clear; Color Urine Yellow; Glucose Urine UA >=1000 mg/dL (Negative); Leukocyte Esterase Urine Negative (Negative); Nitrite Urine Negative (Negative); Specific Gravity - Urine >= 1.030 (1.005-1.025); UMIC TRIGGER UACC YES; Urine Blood Negative (Negative); Urine Ketones Negative (Negative); Urine Protein Negative (Neg-Trace)
[2023-09-17 10:45] LABS: Basophils Absolute Auto 0.1 X10*3/uL (0.0-0.2); Hemoglobin 14.9 g/dl (14.0-18.0); Mean Corpuscular Volume 91.1 fL (80.0-98.0); Platelet Count 204 X10*3/uL (160-400); Red Blood Count 4.72 X10*6/uL (4.60-5.80); White Blood Count 8.9 X10*3/uL (4.8-10.8)
[2023-09-17 11:39] LABS: Alkaline Phosphatase 49 U/L (39-117); Aspartate Amino Transferase 19 U/L (5-37); Bilirubin Total 0.6 mg/dL (0.0-1.0); Blood Urea Nitrogen 27 mg/dL (9-16); Calcium 9.9 mg/dL (8.4-10.2); Chloride 100 mmol/L (96-108); Cholesterol 68 mg/dL (<200); Estimated Glomerular Filt Rate > 60; Glucose Fasting 148 mg/dL (60-99); HDL Cholesterol 25 mg/dL (>40); LDL Cholesterol Calculated 16 mg/dL (<100); Potassium 3.4 mmol/L (3.3-5.1); Sodium 139 mmol/L (135-145); Triglycerides 135 mg/dL (<150)
== END 2023-09-17 07:55 | disposition home or self-care (01) ==
LOC: HO.HMGCLDS 07:54
PROVIDERS: PCP Nurse Practitioner Family; Visit Provider Nurse Practitioner Family
DX: E78.5 Hyperlipidemia, unspecified (principal); E11.9 Type 2 diabetes mellitus without complications; I10 Essential (primary) hypertension
CPT/HCPCS: 36415; 80053; 80061; 81001; 82043; 82570; 84443; 85025

== ENCOUNTER 2023-09-25 08:32 | Outpatient (AMB) | payer MEDICARE, SELFPAY ==
--- NOTE | 2023-09-25 08:44 | MHC.PC.OV ---
Vital Signs 09/25/23 08:48 Height 5 ft 9 in Weight 184 lb BMI 27.2 BP 124/70 Blood Pressure Location Rt brachial Position Sitting Pulse 76 Pulse Source Pulse Oximeter Pulse Oximetry (%) 98 Oxygen Delivery Method Room Air Intake Visit Reasons: 3 Month followup DM Intake Note: Patient here for diabetes f/u. Allergies Penicillins Allergy (Unknown, Verified 09/25/23 08:48) Unknown Tobacco use date assessed: 05/29/23 Fall risk assessment: No Falls in past year Last assessed Fall Risk: 09/25/23 Dental Screening Dental Screen Date: 05/29/23 HPI 3 Month followup DM HPI Details Pt is a diabetic, on an JEZ and a statin. A1C in office today is 7.5. Microalbumin is up to date. Denies polyuria, polydipsia, and neuropathy. Pt denies any signs and symptoms of hypoglycemia and does know how to correct it. Will start ozempic 0.25mg. Pt has been working on his diet. Eye exam is up to date. Due for PSA, will order. Denies dribbling with urination, weak stream, and frequent nocturia. PFSH Surgical History H/O umbilical hernia repair Social History Housing: Apartment Patient Tobacco Use Status: Former Tobacco user Quit Date: 2002 e-Cigarette/Vaping Use: Never Used Second Hand Smoke Exposure: No service: No Current occupational status: retired Cognitive needs: No Hearing needs: No Vision needs: No Questionnaire Thrive Questionnaire Date Thrive assessed: 07/25/22 GURINDER-7 AMB Questionnaire GURINDER-7 Date GURINDER - 7 assessed: 07/25/22 Source: Developed by Drs. Guy Gilmore, Shelia Warner, Paul Dumont and colleagues, with an educational rose from [employer]. Review of Systems Const Reports as per HPI Physical exam (Primary Care) Vital Signs: Last Vital Signs Pulse 76 09/25/23 08:48 BP 124/70 09/25/23 08:48 Pulse Ox 98 09/25/23 08:48 Oxygen Delivery Method Room Air 09/25/23 08:48 BMI result Body Mass Index 27.2 Tobacco/Smoking Status: Tobacco use Status Tobacco use date assessed 05/29/23 09/25/23 08:45 Patient Tobacco Use Status Former Tobacco user 09/25/23 08:45 e-Cigarette/Vaping Use Never Used 09/25/23 08:45 Thrive Assessment: Date of Thrive Assessment Date Thrive assessed 07/25/22 09/25/23 08:45 Const General: cooperative Orientation/consciousness: patient oriented x3 Resp Effort & Inspection: normal respiratory effort Auscultation: clear to auscultation bilaterally Cardio Rate: regular rate Rhythm: regular rhythm Heart sounds: S1 normal heart sound present and S2 normal heart sound present Neuro General: patient oriented x3 Extrem Other: bilat feet: + sensation with use of monofilament, feet intact Psych Appearance: grossly normal Mental Status: mental status grossly normal Speech and movement: Normal speech and movement present Affect: normal affect Attitude: cooperative Thought process: Normal thought process present Thought content: Normal thought content present Insight: Good insight present (Psych) Judgement: Good judgement present (Psych) Results AMB Hemoglobin A1c AMB Hemoglobin A1c 7.5 % Last Edit by OVI Oliva on 09/25/23 09:09 Assessment and Plan Assessment & Plan (1) Diabetes: Code(s): E11.9 - Type 2 diabetes mellitus without complications Plan: Labs ordered, starting ozempic (2) Screening for prostate cancer: Code(s): Z12.5 - Encounter for screening for malignant neoplasm of prostate Plan: PSA ordered (3) Screening for colon cancer: Code(s): Z12.11 - Encounter for screening for malignant neoplasm of colon Plan The patient agreed to the use of a medical reception specialist for this encounter. Scribed for RONNELL Sarabia-BC by Kassidy Sarah medical reception specialist, on 09/25/2023 at 09:10 EST. Orders: Orders AMB Hemoglobin A1c Today Z13.9 - Encounter for screening, unspecified Complete Blood Count Auto Diff Today E11.9 - Type 2 diabetes mellitus without complications Comprehensive [place]. Panel Fast Today E11.9 - Type 2 diabetes mellitus without complications UA CC w/rflx Micro + Cult Today E11.9 - Type 2 diabetes mellitus without complications TSH reflex Free T4 Today E11.9 - Type 2 diabetes mellitus without complications Lipid Panel Today E11.9 - Type 2 diabetes mellitus without complications Referrals Gastroenterology Referral Z12.11 - Encounter for screening for malignant neoplasm of colon Medications: New semaglutide (Ozempic) for 4 weeks 0.25 mg (0.368 mL) subcut QWEEK 3 mL 0RF Coding Level of Care Code Est Pt Level 3 (29721) Diagnoses Diabetes E11.9 Screening for prostate cancer Z12.5 Screening for colon cancer Z12.11
[2023-09-25 08:48] VITALS: BP 124/70; PULSE 76; O2SAT 98; BMI 27.2
== END 2023-09-25 10:30 | disposition home or self-care (01) ==
PROVIDERS: PCP Nurse Practitioner Family; Visit Provider Nurse Practitioner Family
DX: E11.9 Type 2 diabetes mellitus without complications (principal); Z12.5 Encounter for screening for malignant neoplasm of prostate; Z12.11 Encounter for screening for malignant neoplasm of colon
CPT/HCPCS: 83036; 99213

== ENCOUNTER 2023-12-03 12:53 | Outpatient (AMB) | payer MEDICARE, SELFPAY ==
[2023-12-03 12:57] VITALS: BP 118/76; PULSE 77; O2SAT 98; BMI 26.1
--- NOTE | 2023-12-03 12:57 | AM.OFFWIN_ITS ---
Intake Vital Signs 12/03/23 12:57 Height 5 ft 9 in Weight 177 lb BMI 26.1 BP 118/76 Blood Pressure Location Lt brachial Position Sitting Pulse 77 Pulse Source Pulse Oximeter Temp Source Oral Pulse Oximetry (%) 98 Intake Visit Reasons: EP ?med reaction Intake Note: Pt here c/o rash on leg. ? Med reaction (Ozempic) Patient Tobacco Use Status: Former Tobacco user Allergies Penicillins Allergy (Unknown, Verified 12/03/23 12:57) Unknown Do you need a note to return to daycare/school/sports/work: No HPI HPI Comments History of Present Illness Details Patient is a 67yo M who presents to office with concern leg rash He is a diabetic on Ozempic since September He states after September injection he developed a rash on LLE Since most recent shot this month he developed same rash to RLE Starts as bright red dots which fade to purple Unsure if exposure to air has helped No pain, 0/10 No itching or discharge No CP, SOB or fever/chills Used cortisone with unknown relief Has not seen PCP for this issue [facility] Surgical History H/O umbilical hernia repair Social History Housing: Apartment Patient Tobacco Use Status: Former Tobacco user e-Cigarette/Vaping Use: Never Used Second Hand Smoke Exposure: No service: No Current occupational status: retired Cognitive needs: No Hearing needs: No Vision needs: No Review of Systems Const Denies chills and Denies fever(s) Card Denies chest pain and Denies dyspnea Resp Denies cough and Denies dyspnea Musc Denies back pain, Denies myalgias and Denies joint swelling Skin/Breast Denies pruritus, Reports rash and Denies skin pain Neuro Denies paresthesias Crispin/Lymph Denies easy bleeding and Denies easy bruising Physical Exam Vital Signs: Last Vital Signs Pulse 77 12/03/23 12:57 BP 118/76 12/03/23 12:57 Pulse Ox 98 12/03/23 12:57 BMI result Body Mass Index 26.1 General: Non-toxic, NAD. Speaking full sentences. Skin: Warm dry throughout. Bilateral lower extremities anterior ring has small non-blanchable petechiael lesions. No extremity edema or erythema. Non-tender to palpation. No vesicles or escoriations Eye: EOMI Respiratory: No respiratory distress or stridor MSK: Full ROM extremities. Neurology: A/O. No aphasia or facial droop. Gait without abnormality Psych: Good mood and affect Assessment & Plan Assessment & Plan (1) Petechiae: Code(s): R23.3 - Spontaneous ecchymoses Plan: Patient seen and evaluated. Katherine ordered Dermatology ordered and printed for pt to call for appointment ? drug induced leukocytoclastic vasculitis; will need further work up Will hold on steroid as not severe case and no skin break down he will follow up with PCP and derm. Note sent to PCP Patient gave verbal understanding and had no additional questions or concerns at time of discharge All questions answered Orders: Orders Basic Metabolic Panel Today R23.3 - Spontaneous ecchymoses Liver Panel Today R23.3 - Spontaneous ecchymoses Complete Blood Count Auto Diff Today R23.3 - Spontaneous ecchymoses Referrals Dermatology Referral R23.3 - Spontaneous ecchymoses Coding Level of Care Code Est Pt Level 3 (77155) Diagnoses Petechiae R23.3
== END 2023-12-03 13:44 | disposition home or self-care (01) ==
PROVIDERS: PCP Nurse Practitioner Family; Visit Provider Physician Assistant
DX: R23.3 Spontaneous ecchymoses (principal)
CPT/HCPCS: 99213

== ENCOUNTER 2023-12-03 13:23 | Outpatient (REF) | payer MEDICARE, SELFPAY ==
[2023-12-03 15:54] LABS: MANUAL DIFF FLAG NO
[2023-12-03 16:07] LABS: Basophils Percent Auto 0.3 % (0-2); Eosinophils Absolute Auto 0.2 X10*3/uL (0.0-0.4); Hematocrit 41.6 % (42.0-52.0); Hemoglobin 14.3 g/dl (14.0-18.0); Imm Gran Abs Auto 0.02 X10*3/uL (0.00-0.03); Imm Gran Pct Auto 0.2 % (0.0-0.4); Lymphocytes Percent Auto 21.9 % (20-40); Mean Corpuscular HGB Conc 34.4 g/dl (31.0-36.0); Mean Corpuscular Hemoglobin 31.7 pg (27.0-33.0); Mean Corpuscular Volume 92.2 fL (80.0-98.0); Mean Platelet Volume 9.6 fL (9.4-12.4); Monocytes Absolute Auto 0.7 X10*3/uL (0.1-1.2); Monocytes Percent Auto 7.6 % (2-11); Neutrophils Absolute Auto 6.3 x10*3/uL (2.0-8.3); Platelet Count 231 X10*3/uL (160-400); Red Blood Count 4.51 X10*6/uL (4.60-5.80); Red Cell Distribution Width 13.4 % (11.0-16.0); White Blood Count 9.2 X10*3/uL (4.8-10.8)
[2023-12-03 16:36] LABS: Alanine Aminotransferase 36 U/L (0-40); Albumin Level 4.4 g/dL (3.5-5.0); Alkaline Phosphatase 59 U/L (39-117); Anion Gap 18 (12-20); Aspartate Amino Transferase 24 U/L (5-37); Bilirubin Direct 0.2 mg/dL (0.0-0.5); Bilirubin Total 0.5 mg/dL (0.0-1.0); Blood Urea Nitrogen 25 mg/dL (9-16); Calcium 10.6 mg/dL (8.4-10.2); Carbon Dioxide 27 mmol/L (22-29); Chloride 99 mmol/L (96-108); Cholesterol 72 mg/dL (<200); Estimated Glomerular Filt Rate > 60; Glucose Fasting 171 mg/dL (60-99); Glucose Random 170 mg/dL (60-115); HDL Cholesterol 26 mg/dL (>40); LDL Cholesterol Calculated 7 mg/dL (<100); Potassium 3.5 mmol/L (3.3-5.1); Sodium 140 mmol/L (135-145); Total Protein 7.2 g/dL (6.5-8.0); Triglycerides 198 mg/dL (<150)
[2023-12-03 16:38] LABS: TSH reflex Free T4 0.69 uIU/mL (0.32-4.0)
== END 2023-12-03 13:24 | disposition home or self-care (01) ==
LOC: HO.HMGCLDS 13:23
PROVIDERS: PCP Nurse Practitioner Family; Visit Provider Physician Assistant
DX: E11.9 Type 2 diabetes mellitus without complications (principal); R23.3 Spontaneous ecchymoses
CPT/HCPCS: 36415; 80048; 80053; 80061; 80076; 82248; 84443; 85025

== ENCOUNTER 2024-01-29 07:34 | Outpatient (REF) | payer MEDICARE, SELFPAY ==
[2024-01-29 10:05] LABS: MANUAL DIFF FLAG NO
[2024-01-29 10:09] LABS: Appearance Urine Clear; Color Urine Yellow; Glucose Urine UA >=1000 mg/dL (Negative); Leukocyte Esterase Urine Negative (Negative); Nitrite Urine Negative (Negative); PH 5.5 (5.0-9.0); Specific Gravity - Urine 1.025 (1.005-1.025); UMIC TRIGGER UACC YES; Urine Blood Negative (Negative); Urine Ketones Trace mg/dL (Negative); Urine Protein Negative (Neg-Trace)
[2024-01-29 10:12] LABS: Bacteria Urine None Seen (None Seen); Hyaline Casts Urine 0-2 /LPF (0-2); RBC Urine 0-2 /HPF (0-2); Squamous Epithelial Cell Urine 0-2 /HPF (0-2); WBC Urine 0-5 /HPF (0-5)
[2024-01-29 10:29] LABS: Alanine Aminotransferase 30 U/L (0-40); Albumin Level 4.5 g/dL (3.5-5.0); Alkaline Phosphatase 57 U/L (39-117); Anion Gap 15 (12-20); Aspartate Amino Transferase 21 U/L (5-37); Bilirubin Total 0.7 mg/dL (0.0-1.0); Blood Urea Nitrogen 20 mg/dL (9-16); Calcium 10.3 mg/dL (8.4-10.2); Carbon Dioxide 28 mmol/L (22-29); Chloride 98 mmol/L (96-108); Estimated Glomerular Filt Rate > 60; Glucose Random 136 mg/dL (60-115); Potassium 3.6 mmol/L (3.3-5.1); Sodium 137 mmol/L (135-145); Total Protein 7.7 g/dL (6.5-8.0)
[2024-01-29 10:38] LABS: Estimated Average Glucose 134 mg/dL; Hemoglobin A1c % 6.3 % (<6.0)
[2024-01-29 10:43] LABS: Basophils Absolute Auto 0.1 X10*3/uL (0.0-0.2); Basophils Percent Auto 0.6 % (0-2); Eosinophils Absolute Auto 0.1 X10*3/uL (0.0-0.4); Eosinophils Percent Auto 1.4 % (0-4); Hematocrit 44.6 % (42.0-52.0); Hemoglobin 15.3 g/dl (14.0-18.0); Imm Gran Abs Auto 0.03 X10*3/uL (0.00-0.03); Imm Gran Pct Auto 0.3 % (0.0-0.4); Lymphocytes Absolute Auto 2.4 X10*3/uL (1.2-4.9); Lymphocytes Percent Auto 24.4 % (20-40); Mean Corpuscular HGB Conc 34.3 g/dl (31.0-36.0); Mean Corpuscular Hemoglobin 31.7 pg (27.0-33.0); Mean Corpuscular Volume 92.5 fL (80.0-98.0); Mean Platelet Volume 9.3 fL (9.4-12.4); Monocytes Absolute Auto 0.6 X10*3/uL (0.1-1.2); Monocytes Percent Auto 5.9 % (2-11); Neutrophils Absolute Auto 6.5 x10*3/uL (2.0-8.3); Neutrophils Percent Auto 67.4 % (45-73); Platelet Count 214 X10*3/uL (160-400); Red Blood Count 4.82 X10*6/uL (4.60-5.80); Red Cell Distribution Width 13.1 % (11.0-16.0); White Blood Count 9.7 X10*3/uL (4.8-10.8)
[2024-01-29 10:51] LABS: Prostate Specific Antigen Scr 1.97 ng/mL (<0.05-4.0)
== END 2024-01-29 07:35 | disposition home or self-care (01) ==
LOC: HO.HMGCLDS 07:34
PROVIDERS: PCP Nurse Practitioner Family; Visit Provider Nurse Practitioner Family
DX: E11.9 Type 2 diabetes mellitus without complications (principal); Z12.5 Encounter for screening for malignant neoplasm of prostate
CPT/HCPCS: 36415; 80053; 81001; 81003; 83036; 84153; 85025

== ENCOUNTER 2024-02-04 09:20 | Outpatient (AMB) | payer MEDICARE, SELFPAY ==
--- NOTE | 2024-02-04 09:23 | MHC.PC.OV ---
Vital Signs 02/04/24 09:25 Height 5 ft 9 in Weight 172 lb BMI 25.4 BP 110/76 Blood Pressure Location Lt brachial Position Sitting Pulse 83 Pulse Source Pulse Oximeter Pulse Oximetry (%) 98 Intake Visit Reasons: PE Intake Note: Patient here for physical exam. Colon: 2021 Allergies Penicillins Allergy (Unknown, Verified 02/04/24 09:26) Unknown Tobacco use date assessed: 05/29/23 Dental Screening Dental Screen Date: 05/29/23 HPI PE HPI Details Pt is here for a PE. Will order labs. Colon screen is up to date. PSA is up to date. Denies dribbling with urination, weak stream, and frequent nocturia. Pt is a diabetic, on an JEZ and a statin. Last A1C was 6.3. Microalbumin is up to date. Denies polyuria, polydipsia, and neuropathy. Pt denies any signs and symptoms of hypoglycemia and does know how to correct it. Eye exam is up to date. [facility] Surgical History H/O umbilical hernia repair Social History Housing: Apartment Patient Tobacco Use Status: Former Tobacco user e-Cigarette/Vaping Use: Never Used Second Hand Smoke Exposure: No service: No Current occupational status: retired Cognitive needs: No Hearing needs: No Vision needs: No Questionnaire PHQ-9 Over the last 2 weeks, how often have you been bothered by any of the following problems? 1. Little interest or pleasure in doing things: not at all 2. Feeling down, depressed, or hopeless: not at all 3. Trouble falling or staying asleep, or sleeping too much: not at all 4. Feeling tired or having little energy: not at all 5. Poor appetite or overeating: not at all 6. Feeling bad about yourself - or that you are a failure or have let yourself or your family down: not at all 7. Trouble concentrating on things, such as reading the newspaper or watching television: not at all 8. Moving or speaking so slowly that other people could have noticed. Or the opposite - being so fidgety or restless that you have been moving around a lot more than usual: not at all 9. Thoughts that you would be better off or of hurting yourself in some way: not at all Total score: 0 Depression Screening Interpretation: Negative Depression Screening Done: Yes 65254 - PHQ-9 Billing: Yes Source: Developed by Drs. Guy Gilmore, Shelia Warner, Paul Dumont and colleagues, with an educational rose from [employer]. Thrive Questionnaire Date Thrive assessed: 02/04/24 I am a: Patient What is your living situation today?: I have a steady place to live Within the past 12 months, did the food you bought not last and you didn't have the money to get more?: Never true Within the past 12 months, did you worry whether your food would run out before you got money to buy more?: Never true Do you have trouble paying for medicines?: No Do you have trouble getting transportation to medical appointments?: No Do you have trouble paying your heating and electricity bill?: No Do you have trouble taking care of your child, family member or friend?: No Do you have trouble with day-to-day activities such as bathing, preparing meals, shopping, managing finances, etc.?: No Are you interested in more education?: No Please select the resources that you would like help with: None Currently or been in a relationship where the following occur: I choose not to answer THRIVE Score: 0 AUDIT C Alcohol Use Questionnaire (AUDIT-C) 1. How often do you have a drink containing alcohol?: Never Total Score: 0 Score Reviewed/Action Taken: No GURINDER-7 AMB Questionnaire GURINDER-7 Date GURINDER - 7 assessed: 02/04/24 Feeling nervous, anxious, or on edge: 0 = Not at all Not being able to stop or control worryin = Not at all Worrying too much about different things: 0 = Not at all Trouble relaxin = Not at all Being so restless that it is hard to sit still: 0 = Not at all Becoming easily annoyed or irritable: 0 = Not at all Feeling afraid as if something awful might happen: 0 = Not at all Total GURINDER-7 score (0-4 normal; 5-9 mild; 10-14 moderate; 15-21 severe): 0 Source: Developed by Deyvi Abreuet B.W. Timmy, Paul Dumont and colleagues, with an educational rose from [employer]. GURINDER-7 Assessment Billing GURINDER-7 Assessment Tool: GURINDER-7 Assessment 40864 Review of Systems Const Denies chills and Denies fever(s) Eyes Denies blurry vision ENT Denies vertigo, Denies dizziness and Denies sore throat Card Denies chest pain at rest, Denies chest pain with activity, Denies diaphoresis, Denies dyspnea and Denies dyspnea on exertion Resp Denies cough, Denies dyspnea, Denies dyspnea on exertion and Denies wheezing GI Denies abdominal pain, Denies melena, Denies hematochezia, Denies constipation, Denies diarrhea and Denies loose stools Denies hematuria Musc Denies numbness and Denies tingling Skin/Breast Denies lesions Neuro Denies vertigo, Denies dizziness, Denies numbness and Denies tingling Psych Denies anxiety, Denies depression, Denies homicidal ideation, Denies suicidal ideation and Denies other (substance abuse) Aller/Immun Denies wheezing Physical exam (Primary Care) Vital Signs: Last Vital Signs Pulse 83 02/04/24 09:25 BP 110/76 02/04/24 09:25 Pulse Ox 98 02/04/24 09:25 BMI result Body Mass Index 25.4 Tobacco/Smoking Status: Tobacco use Status Tobacco use date assessed 05/29/23 02/04/24 09:25 Patient Tobacco Use Status Former Tobacco user 02/04/24 09:25 e-Cigarette/Vaping Use Never Used 02/04/24 09:25 PHQ-9: PHQ-9 Score PHQ-9: Total score 0 02/04/24 09:43 Depression Screening Interpretation: Negative Thrive Assessment: Date of Thrive Assessment Date Thrive assessed 02/04/24 02/04/24 09:29 Currently or been in a relationship where the following occur: I choose not to answer Const General: cooperative Nutritional Appearance: well nourished Orientation/consciousness: patient oriented x3 HENMT Head: Yes normal to inspection, Yes normocephalic and Yes atraumatic Ears: TM's normal bilaterally Eyes General: appearance normal, both eyes and all related structures Alignment and Position: alignment normal and position normal Neck Neck: Yes normal visual inspection, Yes no lymphadenopathy and Yes supple Resp Effort & Inspection: normal respiratory effort Auscultation: clear to auscultation bilaterally Cardio Rate: regular rate Rhythm: regular rhythm Heart sounds: S1 normal heart sound present, S2 normal heart sound present and no murmurs GI Palpation (GI): Soft to palpation and nontender Auscultation: normal bowel sounds Male General Exam: Yes normal external exam Penis: normal penis Scrotum: scrotum normal, testes descended bilaterally and no inguinal hernias Testes: no testicular mass Skin Rashes: no rashes Neuro General: patient oriented x3, moves all extremities, no focal motor deficits and deep tendon reflexes 2+ bilaterally Romberg Test: Negative Extrem Other: bilat feet: + sensation with use of monofilament, feet intact Psych Appearance: grossly normal Mental Status: mental status grossly normal Speech and movement: Normal speech and movement present Affect: normal affect Attitude: cooperative Thought process: Normal thought process present Thought content: Normal thought content present Insight: Good insight present (Psych) Judgement: Good judgement present (Psych) Assessment and Plan Assessment & Plan (1) Diabetes: Code(s): E11.9 - Type 2 diabetes mellitus without complications Plan: Labs ordered Plan The patient agreed to the use of a esthetician and manager medical spa for this encounter. Scribed for CATARINO Sarabia by Kassidy Sarah esthetician and manager medical spa, on 02/04/2024 at 09:45 EST. Orders: Orders Complete Blood Count Auto Diff Today E11.9 - Type 2 diabetes mellitus without complications Comprehensive [place]. Panel Fast Today E11.9 - Type 2 diabetes mellitus without complications TSH reflex Free T4 Today E11.9 - Type 2 diabetes mellitus without complications UA CC w/rflx Micro + Cult Today E11.9 - Type 2 diabetes mellitus without complications Lipid Panel Today E11.9 - Type 2 diabetes mellitus without complications Coding Level of Care Code Est Pt Prev Care >65y(17282) Diagnoses Diabetes E11.9 Additional Codes GURINDER-7 Assessment Billing - GURINDER-7 Assessment Tool: GURINDER-7 Assessment 11063 ([id number])
[2024-02-04 09:25] VITALS: BP 110/76; PULSE 83; O2SAT 98; BMI 25.4
== END 2024-02-04 09:53 | disposition home or self-care (01) ==
PROVIDERS: PCP Nurse Practitioner Family; Visit Provider Nurse Practitioner Family
DX: Z00.00 Encounter for general adult medical examination without abnormal findings (principal); E11.9 Type 2 diabetes mellitus without complications

== ENCOUNTER → 2024-02-04 09:20 | Outpatient (BNVA) | payer MEDICARE, SELFPAY | PROVIDERS: PCP Nurse Practitioner Family; Visit Provider Nurse Practitioner Family | DX: Z00.00 Encounter for general adult medical examination without abnormal findings (principal); E11.9 Type 2 diabetes mellitus without complications | CPT/HCPCS: 96127 ==

== ENCOUNTER 2024-03-02 08:14 | Outpatient (REF) | payer MEDICARE, SELFPAY ==
--- NOTE | ~2024-03-02 | US_ITS ---
EXAMINATION: US RETROPERITONEAL LIMITED (RENAL ONLY) CLINICAL INFORMATION: Cyst of kidney, acquired. COMPARISON: Renal ultrasound 02/25/2023. Ultrasound abdomen complete 08/12/2022. TECHNIQUE: Real-time imaging of the kidneys. FINDINGS: RIGHT KIDNEY: 10.3 x 6.4 x 6.2 cm (SAG x AP x TRV). The kidney is normal in size, contour, and echogenicity. Renal cortical thickness is normal. No renal calculi or hydronephrosis. Benign-appearing cysts measuring up to 1.1 cm, unchanged. LEFT KIDNEY: 10.5 x 6.4 x 6.4 cm (SAG x AP x TRV). The kidney is normal in size, contour, and echogenicity. Renal cortical thickness is normal. No renal calculi or hydronephrosis. Redemonstration of thinly septated cyst in the midpole and upper pole measuring 5.1 cm, 4.9 cm, and 1.2 cm, stable to slightly decreased from prior study. US/US renal BI IMPRESSION: * Redemonstration of thinly septated left renal cysts, stable to slightly decreased from prior study. * Benign-appearing right renal cysts. Followup imaging is not routinely recommended for benign appearing cysts. Electronically signed by: Roselia Alamo MD 03/16/2024 05:17 PM EDT
== END 2024-03-02 08:15 | disposition home or self-care (01) ==
LOC: HO.HMGCX 08:14
PROVIDERS: PCP Nurse Practitioner Family; Visit Provider Nurse Practitioner Family
DX: N28.1 Cyst of kidney, acquired (principal)
CPT/HCPCS: 76775

== ENCOUNTER 2024-03-04 08:32 | Outpatient (AMB) | payer MEDICARE, SELFPAY ==
--- NOTE | 2024-03-04 08:33 | A.OFFVIS_ITS ---
Intake Visit Reasons: 1yr follow up/US/PSA(pending 03/02) Intake Note: Patient presents for tele visit follow up on : cyst of kidney, psa and ultrasound results PSA: 1.97 Imaging Completed: 03/02/24 Urology Medications: none Blood Thinner: none Diesel Dinkey Engineer Required: No Accompanied by: Self / Same As Patient Allergies Penicillins Allergy (Unknown, Verified 03/16/24 20:12) Unknown Medication List - Last Reconciled 03/16/24 by RONNELL Cabrales- allopurinol 300 mg PO DAILY atenolol-chlorthalidone 50-25 mg 1 tab PO DAILY empagliflozin 25 mg PO DAILY lisinopril 20 mg PO DAILY metformin 1,000 mg PO BID rosuvastatin 10 mg PO DAILY semaglutide (Ozempic) 0.5 mg (0.736 mL) subcut QWEEK HPI Comments Details: Eugene is a pleasant 68-year-old male patient of Dr. Hadley. He presents to the office today for follow-up of his renal cyst. Recent renal imaging results reviewed with the patient today. Kidneys are normal in size, shape, and echogenicity. No renal calculi or hydronephrosis noted bilaterally. Right benign-appearing renal cysts measuring a proximally 1.1 cm, unchanged. Redemonstration of left thinly septated cyst in the mid pole and upper pole measuring 5.1 cm, 4.9 cm, and 1.2 cm, stable to slightly decreased from prior study. In discussion with the patient today reports to be doing and feeling well. He reports since his last office visit here approximately 1 year ago has had no bothersome urinary issues or concerns. Discusses his ongoing issues with his dental implant in his awaiting implant within the next month. Recent PSA results reviewed with the patient today as noted and trended below: PSA 02/08 1.7, 02/09, 2.0 Discussed at length renal cyst and classifications of the cyst. When asked he denies urinary urgency, urinary frequency, incontinence, hematuria, dysuria, foul smelling urine, flank pain, fever, and or chills. He is happy with his current voiding parameters. He denies any other issues or concerns at this time. [facility] Surgical History H/O umbilical hernia repair Social History Housing: Apartment Patient Tobacco Use Status: Former Tobacco user e-Cigarette/Vaping Use: Never Used Second Hand Smoke Exposure: No service: No Current occupational status: retired Cognitive needs: No Hearing needs: No Vision needs: No Physical Exam Const General: cooperative, healthy appearing, comfortable, no acute distress, well developed, alert and awake Orientation/consciousness: patient oriented x3 Resp Effort & Inspection: normal respiratory effort and able to speak in complete sentences Neuro General: patient oriented x3 Psych Appearance: grossly normal and well kempt Mental Status: mental status grossly normal Speech and movement: Clear speech present Affect: normal affect Attitude: cooperative Thought process: Normal thought process present Thought content: Normal thought content present Insight: Fair insight present (Psych) Judgement: Fair judgement present (Psych) Telehealth Telehealth Telehealth Platform: [employer] Location of provider rendering services: practice address Location of patient: address on file Patient Identification confirmed using: Name, : Yes Telehealth method: video Patient verbally consented to treatment: Yes Patient verbally consented to billing insurance company: Yes Patient informed of any privacy concerns related to visit: Yes Minutes spent on Phone/Video with Pt.: 15 Results Reviewed Results Reviewed: Date of Service: 03/02/24 EXAMINATION: US RETROPERITONEAL LIMITED (RENAL ONLY) FINDINGS: RIGHT KIDNEY: 10.3 x 6.4 x 6.2 cm (SAG x AP x TRV). The kidney is normal in size, contour, and echogenicity. Renal cortical thickness is normal. No renal calculi or hydronephrosis. Benign-appearing cysts measuring up to 1.1 cm, unchanged. LEFT KIDNEY: 10.5 x 6.4 x 6.4 cm (SAG x AP x TRV). The kidney is normal in size, contour, and echogenicity. Renal cortical thickness is normal. No renal calculi or hydronephrosis. Redemonstration of thinly septated cyst in the midpole and upper pole measuring 5.1 cm, 4.9 cm, and 1.2 cm, stable to slightly decreased from prior study. IMPRESSION: * Redemonstration of thinly septated left renal cysts, stable to slightly decreased from prior study. * Benign-appearing right renal cysts. Followup imaging is not routinely recommended for benign appearing cysts. Assessment & Plan Assessment & Plan (1) Complex renal cyst: Code(s): N28.1 - Cyst of kidney, acquired Category: Medical Plan Recent renal imaging results reviewed with the patient today; as noted above. Recent PSA results reviewed with the patient today; as noted above. Patient currently denies any bothersome urinary issues or concerns. He reports be happy with current voiding parameters. We discussed classification of renal cysts as well as importance of surveillance monitoring. Will obtain renal ultrasound in 1 year Will obtain PSA in 1 year. Follow-up in 1 year with imaging and lab to be completed prior; or sooner with any issues, concerns, and or questions. Orders: Orders Prostate Specific Antigen 1 Year Z12.5 - Encounter for screening for malignant neoplasm of prostate US renal BI 1 Year N28.1 - Cyst of kidney, acquired Patient Instructions: The patient had an opportunity to ask questions regarding the treatment plan. All questions were answered. Physical exam, labs, and imaging were discussed and reviewed in detail. As well as risks, benefits, and discussion of treatment choices. No major barriers to understanding were identified. The patient expressed understanding and agreement with the above treatment plan. The patient was made aware they should contact our office by phone for worsening of their current condition, the appearance of new symptoms, or with any questions or concerns. Compliance is encouraged with any medications and follow up testing that is ordered. It is a privilege to be allowed the opportunity to participate in? your urological care.? Again, if you have any questions or concerns If you have any questions or concerns please do not hesitate to contact me. The office is [phone]. This note is constructed using voice recognition software. While every effort has been made to ensure accuracy quality assurance advisor errors may have been included. Yours sincerely, CATARINO Cabrales Coding Level of Care Code Tele Est Pt Level 3 (14053) Diagnoses Complex renal cyst N28.1 Time Spent (min) 15
== END 2024-03-04 09:46 | disposition home or self-care (01) ==
LOC: HO.HUSH 08:33
PROVIDERS: PCP Nurse Practitioner Family; Visit Provider Nurse Practitioner Family
DX: N28.1 Cyst of kidney, acquired (principal)
CPT/HCPCS: 99213

== ENCOUNTER → 2024-03-04 08:32 | Outpatient (BNVA) | payer MEDICARE, SELFPAY | PROVIDERS: PCP Nurse Practitioner Family; Visit Provider Nurse Practitioner Family ==

== ENCOUNTER 2024-07-29 07:36 | Outpatient (REF) | payer MEDICARE, SELFPAY ==
[2024-07-29 10:09] LABS: MANUAL DIFF FLAG NO
[2024-07-29 10:14] LABS: Basophils Absolute Auto 0.1 X10*3/uL (0.0-0.2); Basophils Percent Auto 0.6 % (0-2); Eosinophils Absolute Auto 0.1 X10*3/uL (0.0-0.4); Eosinophils Percent Auto 1.3 % (0-4); Hemoglobin 14.2 g/dl (14.0-18.0); Imm Gran Abs Auto 0.02 X10*3/uL (0.00-0.03); Imm Gran Pct Auto 0.2 % (0.0-0.4); Lymphocytes Absolute Auto 2.7 X10*3/uL (1.2-4.9); Lymphocytes Percent Auto 32.3 % (20-40); Mean Corpuscular HGB Conc 34.6 g/dl (31.0-36.0); Mean Corpuscular Hemoglobin 32.2 pg (27.0-33.0); Mean Platelet Volume 9.5 fL (9.4-12.4); Monocytes Absolute Auto 0.6 X10*3/uL (0.1-1.2); Monocytes Percent Auto 7.2 % (2-11); Neutrophils Absolute Auto 4.9 x10*3/uL (2.0-8.3); Neutrophils Percent Auto 58.4 % (45-73); Platelet Count 194 X10*3/uL (160-400); Red Blood Count 4.41 X10*6/uL (4.60-5.80); Red Cell Distribution Width 13.1 % (11.0-16.0); White Blood Count 8.3 X10*3/uL (4.8-10.8)
[2024-07-29 10:38] LABS: Alanine Aminotransferase 37 U/L (0-40); Albumin Level 4.1 g/dL (3.5-5.0); Alkaline Phosphatase 46 U/L (39-117); Anion Gap 13 (12-20); Aspartate Amino Transferase 28 U/L (5-37); Bilirubin Total 0.6 mg/dL (0.0-1.0); Blood Urea Nitrogen 16 mg/dL (9-16); Calcium 9.3 mg/dL (8.4-10.2); Carbon Dioxide 30 mmol/L (22-29); Chloride 101 mmol/L (96-108); Cholesterol 73 mg/dL (<200); Estimated Glomerular Filt Rate > 60; Glucose Fasting 143 mg/dL (60-99); HDL Cholesterol 27 mg/dL (>40); LDL Cholesterol Calculated 15 mg/dL (<100); Potassium 3.6 mmol/L (3.3-5.1); Sodium 140 mmol/L (135-145); Total Protein 7.1 g/dL (6.5-8.0); Triglycerides 155 mg/dL (<150)
[2024-07-29 13:17] LABS: Appearance Urine Clear; Color Urine Yellow; Glucose Urine UA >=1000 mg/dL (Negative); Leukocyte Esterase Urine Negative (Negative); Nitrite Urine Negative (Negative); PH 6.5 (5.0-9.0); Specific Gravity - Urine >= 1.030 (1.005-1.025); UMIC TRIGGER UACC YES; Urine Blood Negative (Negative); Urine Ketones Trace mg/dL (Negative); Urine Protein Negative (Neg-Trace)
[2024-07-29 13:34] LABS: Bacteria Urine None Seen (None Seen); Hyaline Casts Urine 0-2 /LPF (0-2); RBC Urine 0-2 /HPF (0-2); Squamous Epithelial Cell Urine 0-2 /HPF (0-2); WBC Urine 0-5 /HPF (0-5)
== END 2024-07-29 07:37 | disposition home or self-care (01) ==
LOC: HO.HMGCLDS 07:36
PROVIDERS: PCP Nurse Practitioner Family; Visit Provider Nurse Practitioner Family
DX: E11.9 Type 2 diabetes mellitus without complications (principal)
CPT/HCPCS: 36415; 80053; 80061; 81001; 84443; 85025

== ENCOUNTER 2024-08-04 07:46 | Outpatient (AMB) | payer MEDICARE, SELFPAY ==
[2024-08-04 07:47] VITALS: BP 120/80; PULSE 73; TEMP 36.7; O2SAT 98; BMI 26.4
--- NOTE | 2024-08-04 07:47 | A.OFFPC_ITS ---
Vital Signs 08/04/24 07:47 Height 5 ft 9 in Weight 179 lb 2 oz BMI 26.4 BP 120/80 Blood Pressure Location Lt brachial Position Sitting Pulse 73 Pulse Source Pulse Oximeter Temp 98.0 F Temp Source Oral Pulse Oximetry (%) 98 Oxygen Delivery Method Room Air Intake Visit Reasons: 6m follow up Intake Note: pt is here for 6 mon f.up Assurance Associate Required: No Accompanied by: Self / Same As Patient Allergies Penicillins Allergy (Unknown, Verified 08/04/24 08:41) Unknown Medication List - Last Reconciled 08/04/24 by Doug Garcia, [facility]- allopurinol 300 mg PO DAILY 90 days atenolol-chlorthalidone 50-25 mg 1 tab PO DAILY empagliflozin 25 mg PO DAILY lisinopril 20 mg PO DAILY metformin 1,000 mg PO BID rosuvastatin 10 mg PO DAILY semaglutide (Ozempic) 0.5 mg (0.736 mL) subcut QWEEK Tobacco use date assessed: 08/04/24 Fall risk assessment: No Falls in past year Last assessed Fall Risk: 08/04/24 Dental Screening Dental Screen Date: 08/04/24 Did you have a dental visit in the last 12 months?: Yes Did you have a dental problem in the last 6 months where you did not have access to dental care?: No Was dental information given to patient?: Patient has dentist HPI 6m follow up HPI Details Chief Complaint Patient presents for a follow-up regarding diabetes management. History of Present Illness The patient is a 68-year-old male presenting with follow-up for type 2 diabetes mellitus. He acknowledges dietary indiscretions that have impacted his diabetes management. This deviation in diet followed a period when he was experiencing dental issues, which have been rectified with implants, resulting in better nutritional intake. The patient denies any associated symptoms such as polyuria, polydipsia, or neuropathy. Moreover, he reports no chest pain or shortness of breath. Today's evaluation reveals an A1c level of 7.4. refused vaccinations today. eye exam is up to date (according to pt). Labs already performed. Hasnt been on allpurinol for 2 months, will refill and recheck uric acid Social History - The patient has received dental implan ts, which have improved his eating habits. - Reports recent lapse in adherence to a diabetes-appropriate diet. Health Maintenance - Monitoring of A1c level performed, res ult: 7.4. - Discussion emphasized the importance o f dietary management for diabetes control. Review of Systems - Endocrine: Denies polyuria, polydipsia . - Neurological: Denies neuropathy. - Respiratory: Denies shortness of breat h. - Cardiovascular: Denies chest pain. Physical Exam General: Cooperative, healthy appearing, comfortable, no acute distress and well developed Orientation: Patient oriented x3 Limitations: No limitations Head: Normal to inspection Ears: Hearing grossly normal bilaterally Nose: Normal external nose present Face and sinus: Normal facial exam Eyes: Appearance normal, both eyes and all related structures Neck: Normal visual inspection and Yes full ROM Respiratory: Normal respiratory effort and able to speak in complete sentences. Clear to auscultation bilaterally Cardiovascular: Regular rate and rhythm. Normal S1 and S2 GI: Normal to inspection. Soft to palpation and nontender Skin: No rashes or lesions noted Neuro: Patient oriented x3 Extremities: Normal to inspection Results - Labs: Hemoglobin A1c at 7.4. Plan 1. 4, we discussed the critical role of maintaining a structured diet to prevent complications related to diabetes. While medication adjustments were not necessary today, we plan to continue monitoring glycemic levels closely. The patient will also focus on better dietary adherence, with future evaluations of A1c to track improvement.: Discussion Notes I engaged in a comprehensive discussion with the patient regarding the management of type 2 diabetes mellitus, particularly addressing the challenges of dietary adherence. The potential risks and complications of poor glycemic control were outlined, and strategies to bolster dietary management were reviewed. We agreed on maintaining close monitoring of glucose levels and ensuring a follow-up for A1c evaluations. The patient expressed understanding of the need for rigorous dietary control and appeared committed to modifying his nutritional intake to enhance diabetes management. Patient Instructions - Adhere strictly to the diabetes-approp riate dietary plan. - Monitor blood glucose levels regularly . - Report any new symptoms, especially in volving vision changes or sensory disturbances. - Schedule follow-up visits to reassess A1c levels. - Focus on nutrient-rich foods, especial ly in light of dental improvements facilitating better eating habits. [facility] Surgical History H/O umbilical hernia repair Social History Housing: Apartment Patient Tobacco Use Status: Former Tobacco user e-Cigarette/Vaping Use: Never Used Second Hand Smoke Exposure: No service: No Current occupational status: retired Cognitive needs: No Hearing needs: No Vision needs: No Questionnaire PHQ-9 Over the last 2 weeks, how often have you been bothered by any of the following problems? 1. Little interest or pleasure in doing things: not at all 2. Feeling down, depressed, or hopeless: not at all 3. Trouble falling or staying asleep, or sleeping too much: not at all 4. Feeling tired or having little energy: not at all 5. Poor appetite or overeating: not at all 6. Feeling bad about yourself - or that you are a failure or have let yourself or your family down: not at all 7. Trouble concentrating on things, such as reading the newspaper or watching television: not at all 8. Moving or speaking so slowly that other people could have noticed. Or the opposite - being so fidgety or restless that you have been moving around a lot more than usual: not at all 9. Thoughts that you would be better off or of hurting yourself in some way: not at all Total score: 0 Depression Screening Interpretation: Negative Depression Screening Done: Yes 13213 - PHQ-9 Billing: Yes Source: Developed by Drs. Guy Gilmore, Shelia Warner, Paul Dumont and colleagues, with an educational rose from [employer]. Thrive Questionnaire Date Thrive assessed: 08/04/24 I am a: Patient What is your living situation today?: I have a steady place to live Within the past 12 months, did the food you bought not last and you didn't have the money to get more?: Never true Within the past 12 months, did you worry whether your food would run out before you got money to buy more?: Never true Do you have trouble paying for medicines?: No Do you have trouble getting transportation to medical appointments?: No Do you have trouble paying your heating and electricity bill?: No Do you have trouble taking care of your child, family member or friend?: No Do you have trouble with day-to-day activities such as bathing, preparing meals, shopping, managing finances, etc.?: No Are you currently unemployed and looking for a job?: No Are you interested in more education?: No Please select the resources that you would like help with: None Currently or been in a relationship where the following occur: No concerns reported THRIVE Score: 0 AUDIT C Alcohol Use Questionnaire (AUDIT-C) 1. How often do you have a drink containing alcohol?: Never 3. How often do you have six or more drinks on one occasion?: Never Total Score: 0 Score Reviewed/Action Taken: Yes GURINDER-7 AMB Questionnaire GURINDER-7 Date GURINDER - 7 assessed: 08/04/24 Feeling nervous, anxious, or on edge: 0 = Not at all Not being able to stop or control worryin = Not at all Worrying too much about different things: 0 = Not at all Trouble relaxin = Not at all Being so restless that it is hard to sit still: 0 = Not at all Becoming easily annoyed or irritable: 0 = Not at all Feeling afraid as if something awful might happen: 0 = Not at all Total GURINDER-7 score (0-4 normal; 5-9 mild; 10-14 moderate; 15-21 severe): 0 Source: Developed by Drs. Guy Gilmore, Shelia Warner, Paul Dumont and colleagues, with an educational rose from [employer]. GURINDER-7 Assessment Billing GURINDER-7 Assessment Tool: GURINDER-7 Assessment 72744 Physical exam (Primary Care) Vital Signs: Last Vital Signs Temp 98.0 F 08/04/24 07:47 Pulse 73 08/04/24 07:47 BP 120/80 08/04/24 07:47 Pulse Ox 98 08/04/24 07:47 Oxygen Delivery Method Room Air 08/04/24 07:47 BMI result Body Mass Index 26.4 Tobacco/Smoking Status: Tobacco use Status Tobacco use date assessed 08/04/24 08/04/24 07:48 Patient Tobacco Use Status Former Tobacco user 08/04/24 07:48 e-Cigarette/Vaping Use Never Used 08/04/24 07:48 PHQ-9: PHQ-9 Score PHQ-9: Total score 0 08/04/24 07:48 Depression Screening Interpretation: Negative Thrive Assessment: Date of Thrive Assessment Date Thrive assessed 03/19/25 03/19/25 07:48 Currently or been in a relationship where the following occur: No concerns reported Results AMB Hemoglobin A1c AMB Hemoglobin A1c 7.4 % Last Edit by Jamie Orlando CMA on 08/04/24 08: 21 Results Reviewed Results Reviewed: Laboratory Last Values Hgb A1c (Clinic) 7.4 % (4.0-6.0) H 08/04/24 08:19 Coding Level of Care Code Est Pt Level 3 (94622) Diagnoses Gout M10.9 Diabetes E11.9 Additional Codes GURINDER-7 Assessment Billing - GURINDER-7 Assessment Tool: GURINDER-7 Assessment 29971 ([id number]) PHQ-9 - 95436 - PHQ-9 Billing: Yes ([id number]) Assessment & Plan Assessment & Plan (1) Gout: Code(s): M10.9 - Gout, unspecified Category: Medical (2) Diabetes: Code(s): E11.9 - Type 2 diabetes mellitus without complications Category: Medical Plan . Orders: Orders AMB Hemoglobin A1c Today Z13.9 - Encounter for screening, unspecified Uric Acid Today M10.9 - Gout, unspecified Medications: Changed From allopurinol 300 mg PO DAILY To allopurinol 300 mg PO DAILY 90 tabs 0RF 90 days
== END 2024-08-04 08:37 | disposition home or self-care (01) ==
LOC: HO.HMCC 07:46
PROVIDERS: PCP Nurse Practitioner Family; Visit Provider Nurse Practitioner Family
DX: M10.9 Gout, unspecified (principal); E11.9 Type 2 diabetes mellitus without complications; Z13.9 Encounter for screening, unspecified

== ENCOUNTER → 2024-08-04 07:46 | Outpatient (BNVA) | payer MEDICARE, SELFPAY | PROVIDERS: PCP Nurse Practitioner Family; Visit Provider Nurse Practitioner Family | DX: M10.9 Gout, unspecified (principal); E11.9 Type 2 diabetes mellitus without complications | CPT/HCPCS: 83036; 96127; 99212 ==

== ENCOUNTER 2024-10-25 13:53 | Outpatient (AMB) | payer MEDICARE, SELFPAY ==
--- NOTE | 2024-10-25 14:06 | MHC.OFFWIV ---
Intake Vital Signs 10/25/24 14:08 Weight 178 lb BP 118/74 Blood Pressure Location Lt brachial Position Sitting Pulse 67 Pulse Source Pulse Oximeter Temp 97.4 F Temp Source Oral Pulse Oximetry (%) 94 Oxygen Delivery Method Room Air Intake Visit Reasons: EP-high BP/109 over 61 Intake Note: Pt thinks BP was too low, almost passed out on friday at a game, went to ER. Patient Tobacco Use Status: Former Tobacco user Allergies Penicillins Allergy (Unknown, Verified 10/25/24 14:09) Unknown HPI HPI Comments History of Present Illness Details History of Present Illness - The patient is a 68 year old male presenting with low blood pressure readings. - Recent syncope occurred during a visit to a ball field over the weekend, unsure why it happened. He was brought to the hospital for an evaluation. - History of essential hypertension currently managed with atenolol/chlorthalidone and lisinopril, observing episodic hypotensive readings post-medication. - Home monitoring exhibited normal initial daily blood pressure of 128/70, progressively dropping following medication to as low as 109/65. - ER discharge record noted blood pressure at 110/66, considered stable and normal. - Upcoming follow-up with his primary care provider scheduled for January. - He denies CP, SOB, JEREZ, LOC, leg edema, calf pain, dizziness, or weakness. - He does have a home BP cuff. Physical Exam General: Cooperative, healthy appearing, comfortable, no acute distress and well developed Orientation: Patient oriented x3 Eyes: Appearance normal, PERRL Neck: Normal visual inspection and Yes full ROM Respiratory: Normal respiratory effort and able to speak in complete sentences. Clear to auscultation bilaterally Cardiovascular: Regular rate and rhythm. Normal S1 and S2 Skin: No rashes or lesions noted Patient was informed and verbally consented to the use of an ambient scribe for clinic note documentation during this visit. [facility] Surgical History H/O umbilical hernia repair Social History Housing: Apartment Patient Tobacco Use Status: Former Tobacco user e-Cigarette/Vaping Use: Never Used Second Hand Smoke Exposure: No service: No Current occupational status: retired Cognitive needs: No Hearing needs: No Vision needs: No Review of Systems Const All systems reviewed & are unremarkable except as noted in HPI and below Physical Exam Vital Signs: Last Vital Signs Temp 97.4 F 10/25/24 14:08 Pulse 67 10/25/24 14:08 BP 118/74 10/25/24 14:08 Pulse Ox 94 10/25/24 14:08 Oxygen Delivery Method Room Air 10/25/24 14:08 Assessment & Plan Assessment & Plan (1) Low blood pressure: Code(s): I95.9 - Hypotension, unspecified Qualifiers: Hypotension type: hypotension due to drug Qualified Code(s): I95.2 - Hypotension due to drugs Plan Most likely med reaction vs dehydration vs orthostatic HTN Plan - Adjust lisinopril dosage to 10 mg daily to mitigate hypotension risk. - Monitor blood pressure consistently to maintain safe levels. - Ensure adequate hydration and nutrition to reduce syncope risk. - Continue atenolol and chlorthalidone regimen, observe for hypotension or syncope. - Follow up with primary care provider ifor an ER follow uo - Pt has an appointment in January for reassessment. Medications: New lisinopril 10 mg PO DAILY 90 tabs 0RF 90 days Coding Level of Care Code Est Pt Level 3 (58455) Diagnoses Hypotension due to drugs I95.2 Hypotension type: hypotension due to drug
[2024-10-25 14:08] VITALS: BP 118/74; PULSE 67; TEMP 36.3; O2SAT 94
--- OUTSIDE RECORDS SUMMARY | 2024-10-25 15:46 | XMS_ITS ---
Author Name [facility] Organization Unknown Results Test Name/Text Value Interpretation Date Range Source Sp Gr Ur Strip 1.025 [id number] 1.003 - 1.03 HHCCT Glucose Ur Strip-mCnc Abnormal [id number] - HHCCT Hgb Ur Ql Strip [id number] - H HCCT Nitrite Ur Ql Strip 657785522372 - HHCCT pH Ur Strip 5 131739087305 5 - 8 HHCCT Bilirub Ur Strip-mCnc 147660842841 - HHCCT Prot Ur Strip-mCnc 784144424570 - HHCCT Clarity Ur [id number] HHCCT Color Ur 656901889240 HHCCT Leukocyte esterase Ur Ql Strip 894098222468 - HHCCT Ketones Ur Strip-mCnc Abnormal 437903496855 - HHCCT ALP SerPl-cCnc 58U/L 300891717249 45 - 128 HH CCT Prot SerPl-mCnc 6.7g/dL [id number] 6.3 - 8.3 H HCCT Albumin/Glob SerPl 1.5Ratio 321522545539 HHCCT AST SerPl-cCnc 38U/L 725951093486 10 - 55 HH CCT Anion Gap Bld-sCnc 18 Above high normal 631059013060 7 - 17 HHCCT Albumin SerPl-mCnc 4g/dL [id number] 3.4 - 4. 8 HHCCT BUN SerPl-mCnc 22mg/dL Above high normal 364605765096 8 - 21 HHCCT Globulin Ser Calc-mCnc 2.7g/dL 687672297923 1.5 - 3.9 HHCCT Calcium SerPl-mCnc 9.1mg/dL 833594015423 8.7 - 10 .5 HHCCT CO2 SerPl-sCnc 18mmol/L Below low normal 877547435835 22 - 33 HHCCT ALT SerPl-cCnc 36U/L 079092604731 10 - 55 HH CCT Creat SerPl-mCnc 1.1mg/dL [id number] 0.5 - 1.3 HHCCT GFR/BSA.pred SerPlBld IIB-ZMP-WySCum 74 329007091760 59 - HHCCT Bilirub SerPl-mCnc 0.5mg/dL 772267456199 0.2 - 1 HHCCT BUN/Creat SerPl 20Ratio [id number] 10 - 25 H HCCT Sodium SerPl-sCnc 136mmol/L 274658724629 136 - 145 HHCCT Glucose SerPl-mCnc 186mg/dL Above high normal 834965082512 65 - 99 HHCCT Chloride SerPl-sCnc 100mmol/L 525174427453 98 - 10 7 HHCCT Potassium SerPl-sCnc 3.4mmol/L 483697730110 3.4 - 5.3 HHCCT Delta 205639596332 - 3 HHCCT Troponin T SerPl-mCnc 8ng/L 626433102555 - 23 HHCCT Imm Granulocytes num Bld Auto 0.09Thou/uL 0 - 0.1 HHCCT Basophils num Bld Auto 0.05Thou/uL 0 - 0.2 HHCCT Monocytes/leuk NFr Bld Auto 5.4% HHCCT MCV RBC Auto 95fL 80 - 100 HHCC T Hct VFr Bld Auto 43.1% 39 - 54 HHCCT Hgb Bld-mCnc 15g/dL 13 - 17.7 HHCC T MCHC RBC Auto-mCnc 34.8g/dL 30 - 36 HHCCT Neutrophils num Bld Auto 14.66Thou/uL Above high normal 2 - 7.5 HHCCT Lymphocytes/leuk NFr Bld Auto 9.7% HHCCT Imm Granulocytes/leuk NFr Bld Auto 0.5% HHCCT RBC num Bld Auto 4.55Mil/uL [id number] 4.5 - 6.2 HHCCT Basophils/leuk NFr Bld Auto 0.3% 629475441810 HHCCT Eosinophil num Bld Auto 0.06Thou/uL [id number] 0 - 0.7 HHCCT Monocytes num Bld Auto 0.95Thou/uL [id number] 0.2 - 1.5 HHCCT RDW RBC Auto-Rto 12.9% 11.5 - 14. 5 HHCCT Neutrophils/leuk NFr Bld Auto 83.8% 856932043693 HHCCT WBC num Bld Auto 17.5Thou/uL Above high normal 742305807738 4 - 11 HHCCT Lymphocytes num Bld Auto 1.7Thou/uL [id number] 1.5 - 4.5 HHCCT MCH RBC Qn Auto 33pg Above high normal [id number] 27 - 31 HHCCT PMV Bld Auto 9.1fL [id number] 7.5 - 12.[address] Platelet num Bld Auto 182Thou/uL [id number] 150 - 450 HHCCT Eosinophil/leuk NFr Bld Auto 0.3% [id number] HHCCT Encounters Encounter Type Encounter Reason Primary Diagnosis Location Date Emergency Syncope and collapse Syncope and collapse [facility] 10/23/2024 Care Team Organization Name Specialty Phone Email Start Date End Da obdulia [facility] 10/23/2024 [facility]LL[facility] 10/23/2024 [facility] 10/23/2024
== END 2024-10-25 15:38 | disposition home or self-care (01) ==
PROVIDERS: PCP Nurse Practitioner Family; Visit Provider Physician Assistant Medical
DX: I95.2 Hypotension due to drugs (principal)

== ENCOUNTER → 2024-10-25 13:53 | Outpatient (BNVA) | payer MEDICARE, SELFPAY | PROVIDERS: PCP Nurse Practitioner Family; Visit Provider Physician Assistant Medical | DX: I95.2 Hypotension due to drugs (principal) | CPT/HCPCS: 99212 ==

== ENCOUNTER 2025-02-14 08:21 | Outpatient (REF) | payer MEDICARE, SELFPAY ==
--- OUTSIDE RECORDS SUMMARY | 2025-02-14 08:39 | XMS_ITS | Clinical Summary ---
Author Organization [facility] Address [address] [place] [address] Care Team Providers Care Computer System Validation Specialist Name Role Phone Doug Garcia MD Primary Care Provider Allergies Active Allergy Reactions Criticality Noted Date Comments Penicillins Unknown/Patient and Family Unable to Define Medium 10/23/2024 Social History Tobacco Use Types Packs/Day Years Used Date Smoking Tobacco: Never Assessed Sex and Gender Information Value Date Recorded Sex Assigned at Male 10/23/2024 1:08 PM EDT Legal Sex Male 12:41 PM EDT Gender Identity Male 10/23/2024 1:08 PM EDT Sexual Orientation Heterosexual (straight) 10/23 1:08 PM EDT Last Filed Vital Signs Vital Sign Reading Time Taken Comments Blood Pressure 110/64 10/23/2024 3:42 PM EDT Pulse 70 10/23/2024 3:42 PM EDT Temperature 36.6 C (97.9 F) 10/23/2024 12:49 PM EDT Respiratory Rate 18 10/23/2024 3:42 PM EDT Oxygen Saturation 98% 10/23/2024 3:42 PM EDT Inhaled Oxygen Concentration - - Weight 78.9 kg (174 lb) 10/23/2024 12:49 PM EDT Height - - Body Mass Index - - Plan of Treatment Health Maintenance Due Date Last Done Comments Advance Care Planning 1955 Hepatitis C Virus Screening 1955 DTaP/Tdap/Td Vaccines (1 - Tdap) 1976 Colonoscopy 2002 Pneumococcal Vaccines 50+ (1 of 1 - PCV) 12/14/2007 Zoster (Shingles) Vaccine (1 of 2) 12/14/2007 Influenza Vaccine 12/17/2024 COVID-19 Vaccine (2023-2 5 season) 2025 RSV Vaccine 60 years and old er and Patients (1 - 1-dose 75+ series) 2032 Hepatitis B Vaccines Aged Out No long er eligible based on patient's age to complete this topic Insurance [facility] MEDICARE Care Teams Computer System Validation Specialist Relationship Specialty Start Date End Date Doug Garcia MD [address] [place] [id number] PCP - General Family Medicine 10/23/24
--- OUTSIDE RECORDS SUMMARY | 2025-02-14 08:39 | XMS_ITS ---
Author Name [facility] Organization Unknown Results Test Name/Text Value Interpretation Date Range Source Sp Gr Ur Strip 1.025 10/23/2024 1.003 - 1.03 H HCCT Glucose Ur Strip-mCnc Large Abnormal 10/23/2024 - HHCCT Hgb Ur Ql Strip Negative 10/23/2024 - HHC CT Nitrite Ur Ql Strip Negative 10/23/2024 - HHCCT pH Ur Strip 5.0 10/23/2024 5 - 8 HHCCT Bilirub Ur Strip-mCnc Negative 10/23/2024 - HHCCT Prot Ur Strip-mCnc Negative 10/23/2024 - HHCCT Clarity Ur Slightly cloudy 10/23/2024 HH CCT Color Ur Yellow 10/23/2024 HHCCT Leukocyte esterase Ur Ql Strip Negative 10/23/2024 - HHCCT Ketones Ur Strip-mCnc Trace Abnormal 10/23/2024 - HHCCT ALP SerPl-cCnc 58.0 U/L 10/23/2024 45 - 128 HHCC T Prot SerPl-mCnc 6.7 g/dL 10/23/2024 6.3 - 8.[address] Albumin/Glob SerPl 1.5 Ratio 10/23/2024 HHCCT AST SerPl-cCnc 38.0 U/L 10/23/2024 10 - 55 HHCC T Anion Gap Bld-sCnc 18.0 Above high normal 10/23/2024 7 - 17 HHCCT Albumin SerPl-mCnc 4.0 g/dL 10/23/2024 3.4 - 4.8 HHCCT BUN SerPl-mCnc 22.0 mg/dL Above high normal 10/23/2024 8 - 2 1 HHCCT Globulin Ser Calc-mCnc 2.7 g/dL 10/23/2024 1.5 - 3.9 HHCCT Calcium SerPl-mCnc 9.1 mg/dL 10/23/2024 8.7 - 10.5 HHCCT CO2 SerPl-sCnc 18.0 mmol/L Below low normal 10/23/2024 22 - 33 HHCCT ALT SerPl-cCnc 36.0 U/L 10/23/2024 10 - 55 HHCC T Creat SerPl-mCnc 1.1 mg/dL 10/23/2024 0.5 - 1.3 HH CCT GFR/BSA.pred SerPlBld YQV-RLT-AbALii 74.0 10/23/2024 59 - HHCCT Bilirub SerPl-mCnc 0.5 mg/dL 10/23/2024 0.2 - 1 HHCCT BUN/Creat SerPl 20.0 Ratio 10/23/2024 10 - 25 HH CCT Sodium SerPl-sCnc 136.0 mmol/L 10/23/2024 136 - 14 5 HHCCT Glucose SerPl-mCnc 186.0 mg/dL Above high normal 10/23/2024 65 - 99 HHCCT Chloride SerPl-sCnc 100.0 mmol/L 10/23/2024 98 - 1 07 HHCCT Potassium SerPl-sCnc 3.4 mmol/L 10/23/2024 3.4 - 5 .3 HHCCT Delta NO PREVIOUS RESULT 10/23/2024 - 3 HHCCT Troponin T SerPl-mCnc 8.0 ng/L 10/23/2024 - 23 HHCCT Imm Granulocytes num Bld Auto 0.09 Thou/uL 10/23/2024 0 - 0.1 HHCCT Basophils num Bld Auto 0.05 Thou/uL 10/23/2024 0 - 0.2 HHCCT Monocytes/leuk NFr Bld Auto 5.4 % 10/23/2024 HHCCT MCV RBC Auto 95.0 fL 10/23/2024 80 - 100 HHCCT Hct VFr Bld Auto 43.1 % 10/23/2024 39 - 54 HH CCT Hgb Bld-mCnc 15.0 g/dL 10/23/2024 13 - 17.7 HHCCT MCHC RBC Auto-mCnc 34.8 g/dL 10/23/2024 30 - 36 HHCCT Neutrophils num Bld Auto 14.66 Thou/uL Above high normal 10/23/2024 2 - 7.5 HHCCT Lymphocytes/leuk NFr Bld Auto 9.7 % 10/23/2024 HHCCT Imm Granulocytes/leuk NFr Bld Auto 0.5 % 10/23/2024 HHCCT RBC num Bld Auto 4.55 Mil/uL 10/23/2024 4.5 - 6.2 HHCCT Basophils/leuk NFr Bld Auto 0.3 % 10/23/2024 HHCCT Eosinophil num Bld Auto 0.06 Thou/uL 10/23/2024 0 - 0.7 HHCCT Monocytes num Bld Auto 0.95 Thou/uL 10/23/2024 0.2 - 1.5 HHCCT RDW RBC Auto-Rto 12.9 % 10/23/2024 11.5 - 14.5 HHCCT Neutrophils/leuk NFr Bld Auto 83.8 % 10/23/2024 HHCCT WBC num Bld Auto 17.5 Thou/uL Above high normal 10/23/2024 4 - 11 HHCCT Lymphocytes num Bld Auto 1.7 Thou/uL 10/23/2024 1.5 - 4.5 HHCCT MCH RBC Qn Auto 33.0 pg Above high normal 10/23/2024 27 - 31 HHCCT PMV Bld Auto 9.1 fL 10/23/2024 7.5 - 12.5 HHCCT Platelet num Bld Auto 182.0 Thou/uL 10/23/2024 150 - 450 HHCCT Eosinophil/leuk NFr Bld Auto 0.3 % 10/23/2024 HHCCT Encounters Encounter Type Encounter Reason Primary Diagnosis Location Date Emergency Syncope and collapse Syncope and collapse [facility] 10/23/2024 Care Team Organization Name Specialty Phone Email Start Date End Da obdulia [facility] 10/23/2024 11/21/2024 [facility] MELLISA MOON Primary Care 10/23/2024 [facility] 10/23/2024
[2025-02-14 10:00] LABS: MANUAL DIFF FLAG NO
[2025-02-14 10:05] LABS: Hematocrit 42.1 % (42.0-52.0); Hemoglobin 14.5 g/dl (14.0-18.0); Imm Gran Abs Auto 0.04 X10*3/uL (0.00-0.03); Imm Gran Pct Auto 0.4 % (0.0-0.4); Lymphocytes Absolute Auto 2.0 X10*3/uL (1.2-4.9); Mean Corpuscular HGB Conc 34.4 g/dl (31.0-36.0); Mean Corpuscular Hemoglobin 31.2 pg (27.0-33.0); Mean Corpuscular Volume 90.5 fL (80.0-98.0); NRBC Abs Auto 0.000 X10*3/uL (0.0-0.012); NRBC Pct Auto 0.0 /100WBC (0.0-0.2); Platelet Count 173 X10*3/uL (160-400); Red Blood Count 4.65 X10*6/uL (4.60-5.80); White Blood Count 9.6 X10*3/uL (4.8-10.8)
[2025-02-14 10:08] LABS: Appearance Urine Clear; Glucose Urine UA >=1000 mg/dL (Negative); PH 5.0 (5.0-9.0); Specific Gravity - Urine >= 1.030 (1.005-1.025); UMIC TRIGGER UACC YES
[2025-02-14 10:45] LABS: Alanine Aminotransferase 26 U/L (0-40); Albumin Level 4.3 g/dL (3.5-5.0); Alkaline Phosphatase 46 U/L (39-117); Anion Gap 13 (12-20); Aspartate Amino Transferase 25 U/L (5-37); Blood Urea Nitrogen 26 mg/dL (9-16); Calcium 9.4 mg/dL (8.4-10.2); Carbon Dioxide 28 mmol/L (22-29); Chloride 101 mmol/L (96-108); Cholesterol 69 mg/dL (<200); Estimated Glomerular Filt Rate > 60; HDL Cholesterol 25 mg/dL (>40); Potassium 3.7 mmol/L (3.3-5.1); Sodium 138 mmol/L (135-145); Total Protein 6.8 g/dL (6.5-8.0); Triglycerides 173 mg/dL (<150); Uric Acid 5.6 mg/dL (3.4-7.0)
[2025-02-14 11:04] LABS: Microalbum/Creatinine Ratio Ur 10.0 ug/mg cr (<30)
== END 2025-02-14 08:22 | disposition home or self-care (01) ==
LOC: HO.HMGCLDS 08:21
PROVIDERS: PCP Nurse Practitioner Family; Visit Provider Nurse Practitioner Family
DX: E11.9 Type 2 diabetes mellitus without complications (principal); M10.9 Gout, unspecified
CPT/HCPCS: 36415; 80053; 80061; 81001; 82043; 82570; 83036; 84443; 84550; 85025

== ENCOUNTER 2025-02-16 07:48 | Outpatient (AMB) | payer MEDICARE, SELFPAY ==
--- OUTSIDE RECORDS SUMMARY | 2025-02-16 07:52 | XMS_ITS | Clinical Summary ---
Author Organization [facility] Address [address] [place] [address] Care Team Providers Care Rolled Glass Crosscutter Name Role Phone Doug Garcia MD Primary [...] patient's age to complete this topic Insurance [facility] MEDICARE Care Teams Rolled Glass Crosscutter Relationship Specialty Start Date End Date Doug Garcia MD [address] [place] [phone] PCP - General Family Medicine 10/23/24
[2025-02-16 08:07] VITALS: BP 140/80; PULSE 74; RESP 16; TEMP 36.8; O2SAT 100; BMI 27.0
--- NOTE | 2025-02-16 08:07 | MHC.PC.OV ---
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 Accompanied by: Self / Same As Patient Allergies Penicillins Allergy (Unknown, Verified 02/16/25 08:09) Unknown Medication List - Last Reconciled 02/16/25 by Doug Garcia [facility]- allopurinol 300 mg PO DAILY atenolol-chlorthalidone 50-25 mg 0.5 tabs PO DAILY empagliflozin 25 mg PO DAILY metformin 1,000 mg PO BID rosuvastatin 10 mg PO DAILY semaglutide (Ozempic) 0.5 mg (0.736 mL) subcut QWEEK Tobacco use date assessed: 02/16/25 Fall risk assessment: No Falls in past year Last assessed Fall Risk: 02/16/25 Dental Screening Dental Screen Date: 02/16/25 Did you have a dental visit in the last 12 months?: Yes Did you have a dental problem in the last 6 months where you did not have access to dental care?: No Was dental information given to patient?: Patient has dentist HPI PE - A1c due HPI Details History of Present Illness The patient is a 69-year-old male presenting with a physical examination and management of chronic conditions. The patient has a history of Diabetes Mellitus with a recent Hemoglobin A1c of 6.9% recorded on February 14, and an office reading of 7.4%. He denies any neuropathy but reports sensitive feet since , with positive sensation on monofilament testing. eye exam up to date The patient has a history of hypertension, previously managed with atenolol and chlorthalidone. He recently stopped lisinopril due to dehydration and orthostatic changes, but will restart at a lower dose of 2.5 mg due to rising blood pressure. The patient reports a recent episode of dehydration and orthostatic changes, for which he was seen in the hospital. He is now monitoring his blood pressure at home and will report any increases. The patient reports a recent incident of back pain after moving an object, which occurred approximately a week and a half ago. He denies radicular symptoms and finds relief with intermittent use of Aleve, although he has been advised to use heat and stretching instead. no s/s of cauda equina Health Maintenance - Prostate health monitoring with urologist - Eye exam up-to-date - Microalbumin levels up-to-date and low -colon screen is UTD Social History Review of Systems - Cardiovascular: Denies chest pain, dyspnea, or orthopnea. - Gastrointestinal: Denies abdominal pain, hematochezia, constipation, or diarrhea. - Neurological: Denies neuropathy but reports sensitive feet since . - Musculoskeletal: Reports recent back pain without radicular symptoms. Physical Exam General: Cooperative, healthy appearing, comfortable, no acute distress and well developed Orientation: Patient oriented x3 Limitations: No limitations Head: Normal to inspection Ears: Hearing grossly normal bilaterally Nose: Normal external nose present Face and sinus: Normal facial exam Eyes: Appearance normal, both eyes and all related structures Neck: Normal visual inspection and Yes full ROM Respiratory: Normal respiratory effort and able to speak in complete sentences. Clear to auscultation bilaterally Cardiovascular: Regular rate and rhythm. Normal S1 and S2 GI: Normal to inspection. Soft to palpation and nontender : Testicles without masses/lesions and no hernias appreciated Skin: No rashes or lesions noted Neuro: Patient oriented x3, denies any neuropathy though he does have sensitive feet, positive sensation with use of monofilament to feet. able to heel and papito walk without back pain. neg straight leg raises (though increase pain to left lower back) Extremities: Normal to inspection, feet were intact Results - Labs: Hemoglobin A1c 6.9% on 02/14, 7.4% in office - Labs: Microalbumin levels low Plan 1. Diabetes Mellitus The patient's diabetes management will continue without changes to his current medication regimen, given the recent A1c levels. 2. Hypertension The patient will restart lisinopril at a lower dose of 2.5 mg due to recent dehydration and orthostatic changes, and will monitor blood pressure at home. 3. Back Pain The patient is advised to use heat and stretching for back pain management, with limited use of Aleve. Discussion Notes I discussed with the patient the importance of monitoring his blood pressure at home and reporting any significant changes. We also reviewed the management of his back pain, emphasizing the use of heat and stretching over prolonged use of Aleve. Patient Instructions - Monitor blood pressure at home and report any significant changes. - Use heat and stretching for back pain relief, limit use of Aleve. [facility] Surgical History H/O umbilical hernia repair Social History Housing: Apartment Patient Tobacco Use Status: Former Tobacco user e-Cigarette/Vaping Use: Never Used Second Hand Smoke Exposure: No service: No Current occupational status: retired Cognitive needs: No Hearing needs: No Vision needs: No Questionnaire PHQ-9 Over the last 2 weeks, how often have you been bothered by any of the following problems? 1. Little interest or pleasure in doing things: not at all 2. Feeling down, depressed, or hopeless: not at all 3. Trouble falling or staying asleep, or sleeping too much: not at all 4. Feeling tired or having little energy: not at all 5. Poor appetite or overeating: not at all 6. Feeling bad about yourself - or that you are a failure or have let yourself or your family down: not at all 7. Trouble concentrating on things, such as reading the newspaper or watching television: not at all 8. Moving or speaking so slowly that other people could have noticed. Or the opposite - being so fidgety or restless that you have been moving around a lot more than usual: not at all 9. Thoughts that you would be better off or of hurting yourself in some way: not at all Total score: 0 Depression Screening Interpretation: Negative Depression Screening Done: Yes 38381 - PHQ-9 Billing: Yes Source: Developed by Drs. Guy Gilmore, Shelia Warner, Paul Dumont and colleagues, with an educational rose from [employer]. Thrive Questionnaire Date Thrive assessed: 07/28/24 I am a: Patient What is your living situation today?: I have a steady place to live Within the past 12 months, did the food you bought not last and you didn't have the money to get more?: Never true Within the past 12 months, did you worry whether your food would run out before you got money to buy more?: Never true Do you have trouble paying for medicines?: No Do you have trouble getting transportation to medical appointments?: No Do you have trouble paying your heating and electricity bill?: No Do you have trouble taking care of your child, family member or friend?: No Do you have trouble with day-to-day activities such as bathing, preparing meals, shopping, managing finances, etc.?: No Are you currently unemployed and looking for a job?: No Are you interested in more education?: No Please select the resources that you would like help with: None Currently or been in a relationship where the following occur: No concerns reported THRIVE Score: 0 GURINDER-7 AMB Questionnaire GURINDER-7 Date GURINDER - 7 assessed: 02/16/25 Feeling nervous, anxious, or on edge: 0 = Not at all Not being able to stop or control worryin = Not at all Worrying too much about different things: 0 = Not at all Trouble relaxin = Not at all Being so restless that it is hard to sit still: 0 = Not at all Becoming easily annoyed or irritable: 0 = Not at all Feeling afraid as if something awful might happen: 0 = Not at all Total GURINDER-7 score (0-4 normal; 5-9 mild; 10-14 moderate; 15-21 severe): 0 Source: Developed by Drs. Guy Gilmore, Shelia Warner, Paul Dumont and colleagues, with an educational rose from [employer]. GURINDER-7 Assessment Billing GURINDER-7 Assessment Tool: GURINDER-7 Assessment 91414 Physical exam (Primary Care) Vital Signs: Last Vital Signs Temp 98.3 F 02/16/25 08:07 Pulse 74 02/16/25 08:07 Resp 16 02/16/25 08:07 BP 140/80 H 02/16/25 08:07 Pulse Ox 100 02/16/25 08:07 BMI result Body Mass Index 27.0 Tobacco/Smoking Status: Tobacco use Status Tobacco use date assessed 02/16/25 02/16/25 08:16 Patient Tobacco Use Status Former Tobacco user 02/16/25 08:16 e-Cigarette/Vaping Use Never Used 02/16/25 08:16 PHQ-9: PHQ-9 Score PHQ-9: Total score 0 02/16/25 08:16 Depression Screening Interpretation: Negative Thrive Assessment: Date of Thrive Assessment Date Thrive assessed 07/28/24 02/16/25 08:16 Currently or been in a relationship where the following occur: No concerns reported Coding Level of Care Code Est Pt Level 3 (32877) Est Pt Prev Care >65y(79485) Diagnoses Diabetes E11.9 Encounter for routine adult physical exam with abnormal findings Z00.01 Additional Codes GURINDER-7 Assessment Billing - GURINDER-7 Assessment Tool: GURINDER-7 Assessment 04627 ([id number]) PHQ-9 - 12023 - PHQ-9 Billing: Yes ([id number]) Assessment & Plan Assessment & Plan (1) Diabetes: Code(s): E11.9 - Type 2 diabetes mellitus without complications Category: Medical (2) Encounter for routine adult physical exam with abnormal findings: Code(s): Z00.01 - Encounter for general adult medical examination with abnormal findings Category: Medical Plan . Medications: New lisinopril 2.5 mg PO DAILY 90 tabs 0RF Changed From atenolol-chlorthalidone 50-25 mg 1 tab PO DAILY 90 tabs 1RF To atenolol-chlorthalidone 50-25 mg 0.5 tabs PO DAILY
== END 2025-02-16 10:21 | disposition home or self-care (01) ==
LOC: HO.HMCC 07:49
PROVIDERS: PCP Nurse Practitioner Family; Visit Provider Nurse Practitioner Family
DX: Z00.00 Encounter for general adult medical examination without abnormal findings (principal); E11.9 Type 2 diabetes mellitus without complications

== ENCOUNTER → 2025-02-16 07:48 | Outpatient (BNVA) | payer MEDICARE, SELFPAY | PROVIDERS: PCP Nurse Practitioner Family; Visit Provider Nurse Practitioner Family | DX: Z00.01 Encounter for general adult medical examination with abnormal findings (principal); E11.9 Type 2 diabetes mellitus without complications; I10 Essential (primary) hypertension; M54.9 Dorsalgia, unspecified | CPT/HCPCS: 83036; 96127; 99397 ==

== ENCOUNTER 2025-03-01 08:11 | Outpatient (REF) | payer MEDICARE, SELFPAY ==
--- NOTE | ~2025-03-01 | US_ITS ---
CLINICAL HISTORY: N28.1 - Cyst of kidney, acquired US Renal Comparison: US/SR - US KIDNEY BILATERAL - 03/02/24 08:26 EDT US/SR - US KIDNEY BILATERAL - 02/25/23 08:30 EDT Findings: Right kidney normal size and echotexture, 10 x 6.4 x 5.9 cm length. Lower pole anechoic focus with posterior acoustic enhancement internal septation, 1.3 x 1.1 x 1 2 cm; complex cyst. Interpolar region anechoic focus with posterior acoustic enhancement 0.6 x 0.5 x 0.5 cm; simple cyst. Moreover, right upper pole heterogeneous hypoechoic mass, 4 x 3.6 x 3.2 cm Left kidney normal size and echotexture, 10.8 x 6.7 x 5.9 cm length.. In addition lower pole anechoic focus with posterior acoustic enhancement, 5 x 4.5 x 4 7 cm with some internal echoes, interpolar region anechoic focus posterior acoustic enhancement, 1.1 x 1 x 0.9 cm, upper pole 6.5 x 4.4 x 4.8 cm; simple cysts. No collecting system dilatation of either kidney. Normal color Doppler. IMPRESSION: Right renal upper pole heterogeneous hypoechoic mass, 4 x 3.6 x 3.2 cm; upper pole renal mass versus right adrenal mass abutting the upper pole of the right kidney. CT of the abdomen and pelvis without and with IV contrast suggested further evaluation and differentiation. Left renal lower pole complex cyst, 1.3 x 1.1 x 1.2 cm (Bosniak 2F). This document has been electronically signed by: Mann Zhao MD on 03/01/2025 19:03:05
--- OUTSIDE RECORDS SUMMARY | 2025-03-01 08:19 | XMS_ITS | Clinical Summary ---
Author Organization [facility] Address [address] [place] [address] Care Team Providers Care Clinical Operations Leader Name Role Phone Doug Garcia MD Primary [...] patient's age to complete this topic Insurance [facility] MEDICARE Care Teams Clinical Operations Leader Relationship Specialty Start Date End Date Doug Garcia MD [address] [place] [id number] PCP - General Family Medicine 10/23/24
[2025-03-01 11:01] LABS: Prostate Specific Antigen 2.65 ng/mL (<0.05-4.0)
== END 2025-03-01 08:12 | disposition home or self-care (01) ==
LOC: HO.HMGCX 08:11
PROVIDERS: PCP Nurse Practitioner Family; Visit Provider Nurse Practitioner Family
DX: Z12.5 Encounter for screening for malignant neoplasm of prostate (principal); N28.1 Cyst of kidney, acquired
CPT/HCPCS: 36415; 76775; 84153

== ENCOUNTER → 2025-03-01 08:21 | Outpatient (BNV) | payer MEDICARE, SELFPAY | PROVIDERS: PCP Nurse Practitioner Family; Visit Provider Radiology Diagnostic Radiology | DX: D49.511 Neoplasm of unspecified behavior of right kidney (principal) | CPT/HCPCS: 76775 ==

== ENCOUNTER 2025-03-07 08:12 | Outpatient (AMB) | payer MEDICARE, SELFPAY ==
--- NOTE | 2025-03-07 08:21 | A.OFFVIS_ITS ---
Intake Visit Reasons: 1 year follow-up with a PSA and ultrasound Intake Note: patient presents today for: 1yr follow up urology medications: allopurinol blood thinners: none imaging done: 03/01/25 labs done 03/01/25: 2.65 Branch Office Manager Required: No Accompanied by: Self / Same As Patient Allergies Penicillins Allergy (Unknown, Verified 03/07/25 21:21) Unknown Medication List - Last Reconciled 03/07/25 by RONNELL Cabrales- allopurinol 300 mg PO DAILY atenolol-chlorthalidone 50-25 mg 0.5 tabs PO DAILY empagliflozin 25 mg PO DAILY lisinopril 2.5 mg PO DAILY metformin 1,000 mg PO BID rosuvastatin 10 mg PO DAILY semaglutide (Ozempic) 0.5 mg (0.736 mL) subcut QWEEK HPI Comments Details: Eugene is a pleasant 69-year-old male patient of Dr. Hadley. He presents to the office today for follow-up of his renal cyst. Recent renal imaging results reviewed with the patient today. 03/12 right renal upper pole heterogeneous hypoechoic mass, 4 x 3.6 x 3.2 cm; upper pole renal mass verses right adrenal mass abutting the upper pole of the right kidney. CT of the abdomen and pelvis with and without IV contrast is suggested per radiology report. Left renal lower pole complex cysts measuring 1.3 x 1.1 x 1.2 cm (Bosniak 2F). Previous renal imaging 03/11 noted kidneys are normal in size, shape, and echogenicity. No renal calculi or hydronephrosis noted bilaterally. Right benign-appearing renal cysts measuring a proximally 1.1 cm, unchanged. Redemonstration of left thinly septated cyst in the mid pole and upper pole measuring 5.1 cm, 4.9 cm, and 1.2 cm, stable to slightly decreased from prior study. In discussion with the patient today he reports to be doing and feeling well. He reports since his last office visit here approximately 1 year ago has had no bothersome urinary issues or concerns. Recent PSA results reviewed with the patient today as noted and trended below: PSA 02/08 1.7, 02/09, 2.0, 03/12 2.7 Discussed at length renal cyst, classifications of the cyst, and renal masses. When asked he denies urinary urgency, urinary frequency, incontinence, hematuria, dysuria, foul smelling urine, flank pain, fever, and or chills. He is happy with his current voiding parameters. All questions were answered He denies any other issues or concerns at this time. [facility] Surgical History H/O umbilical hernia repair Social History Housing: Apartment Patient Tobacco Use Status: Former Tobacco user e-Cigarette/Vaping Use: Never Used Second Hand Smoke Exposure: No service: No Current occupational status: retired Cognitive needs: No Hearing needs: No Vision needs: No Review of Systems Const All systems reviewed & are unremarkable except as noted in HPI and below Reports no additional complaints Eyes Reports no additional complaints ENT Reports no additional complaints Card Reports no additional complaints Resp Reports no additional complaints GI Reports no additional complaints Reports as per HPI Musc Reports no additional complaints Neuro Reports no additional complaints Psych Reports no additional complaints Endo Reports no additional complaints Crispin/Lymph Reports no additional complaints Aller/Immun Reports no additional complaints Physical Exam Const General: cooperative, healthy appearing, comfortable, no acute distress, well developed, alert and awake Orientation/consciousness: patient oriented x3 Limitations: no limitations HEENT Head: Yes normal to inspection, Yes normocephalic and Yes atraumatic Ears: hearing grossly normal bilaterally Eyes General: appearance normal, both eyes and all related structures Neck Neck: Yes normal visual inspection and Yes trachea midline Chest Chest palpation & inspection: normal inspection of the chest Resp Effort & Inspection: normal respiratory effort and able to speak in complete sentences Cardio Rate: regular rate GI Inspection: Yes normal to inspection General: Yes no CVA tenderness Back/Spine/Pelvis Back: no CVA tenderness Skin General skin exam: no rashes or lesions noted Neuro General: patient oriented x3 Extrem General: Yes normal to inspection Psych Appearance: grossly normal and well kempt Mental Status: mental status grossly normal Speech and movement: Clear speech present Affect: normal affect Attitude: cooperative Thought process: Normal thought process present Thought content: Normal thought content present Insight: Fair insight present (Psych) Judgement: Fair judgement present (Psych) Results AMB Urinalysis, Automated UA Leukoctes 0 Mateo/uL Last Edit by OVI Oakes on 03/07/25 08:33 UA Nitrite Last Edit by OVI Oakes on 03/07/25 08:33 UA Urobilinogen 0.2 mg/dL Last Edit by OVI Oakes on 03/07/25 08:3 3 UA Protein 0 mg/dL Last Edit by OVI Oakes on 03/07/25 08:33 UA pH 5.0 Last Edit by OVI Oakes on 03/07/25 08:33 UA Blood 0 Ladarius/uL Last Edit by OVI Oakes on 03/07/25 08:33 UA Specific [place] 1.015 Last Edit by OVI Oakes on 03/07/25 08: 33 UA Ketone Last Edit by OVI Oakes on 03/07/25 08:33 UA Bilirubin 0 mg/dL Last Edit by OVI Oakes on 03/07/25 08:33 UA Glucose 1000 mg/dL Last Edit by OVI Oakes on 03/07/25 08:33 Results Reviewed Results Reviewed: Laboratory Last Values Urine pH (Auto) 5.0 03/07/25 08:32 Specific [place] (Auto) 1.015 03/07/25 08:32 Urine Protein (Auto) 0 mg/dL 03/07/25 08:32 Glucose (UA)(Auto) 1000 mg/dL 03/07/25 08:32 Urine Blood (Auto) 0 Ladarius/uL 03/07/25 08:32 Urine Bilirubin (Auto) 0 mg/dL 03/07/25 08:32 Urine Urobilinogen (Auto) 0.2 mg/dL 03/07/25 08:32 Leukocyte Esterase (Auto) 0 Mateo/uL 03/07/25 08:32 Date of Service: 03/01/25 Procedure(s): US renal BI Findings: Right kidney normal size and echotexture, 10 x 6.4 x 5.9 cm length. Lower pole anechoic focus with posterior acoustic enhancement internal septation, 1.3 x 1.1 x 1 2 cm; complex cyst. Interpolar region anechoic focus with posterior acoustic enhancement 0.6 x 0.5 x 0.5 cm; simple cyst. Moreover, right upper pole heterogeneous hypoechoic mass, 4 x 3.6 x 3.2 cm Left kidney normal size and echotexture, 10.8 x 6.7 x 5.9 cm length.. In addition lower pole anechoic focus with posterior acoustic enhancement, 5 x 4.5 x 4 7 cm with some internal echoes, interpolar region anechoic focus posterior acoustic enhancement, 1.1 x 1 x 0.9 cm, upper pole 6.5 x 4.4 x 4.8 cm; simple cysts. No collecting system dilatation of either kidney. Normal color Doppler. IMPRESSION: Right renal upper pole heterogeneous hypoechoic mass, 4 x 3.6 x 3.2 cm; upper pole renal mass versus right adrenal mass abutting the upper pole of the right kidney. CT of the abdomen and pelvis without and with IV contrast suggested further evaluation and differentiation. Left renal lower pole complex cyst, 1.3 x 1.1 x 1.2 cm (Bosniak 2F). Assessment & Plan Assessment & Plan (1) Complex renal cyst: Code(s): N28.1 - Cyst of kidney, acquired Category: Medical Plan In office urinalysis results reviewed with the patient today; as noted above. Recent renal imaging results reviewed with the patient today; as noted above. Recent PSA results reviewed with the patient today; as noted above. All questions were answered. Will obtain CT urogram for further assessment evaluation. BUN and creatinine ordered for imaging. Patient currently denies any bothersome urinary issues or concerns. He reports be happy with current voiding parameters. Follow-up in 1-2 months with imaging to be completed prior; or sooner with any issues, concerns, and or questions. Orders: Orders AMB Urinalysis Automated Today Z13.9 - Encounter for screening, unspecified Creatinine Today R39.15 - Urgency of urination CT abdomen pelvis wo/w IV con Today N28.1 - Cyst of kidney, acquired Blood Urea Nitrogen Today R39.15 - Urgency of urination Patient Instructions: The patient had an opportunity to ask questions regarding the treatment plan. All questions were answered. Physical exam, labs, and imaging were discussed and reviewed in detail. As well as risks, benefits, and discussion of treatment choices. No major barriers to understanding were identified. The patient expressed understanding and agreement with the above treatment plan. The patient was made aware they should contact our office by phone for worsening of their current condition, the appearance of new symptoms, or with any questions or concerns. Compliance is encouraged with any medications and follow up testing that is ordered. It is a privilege to be allowed the opportunity to participate in? your urological care.? Again, if you have any questions or concerns If you have any questions or concerns please do not hesitate to contact me. The office is [phone]. This note is constructed using voice recognition software. While every effort has been made to ensure accuracy geodetic survey director errors may have been included. Yours sincerely, CATARINO Cabrales Coding Level of Care Code Est Pt Level 3 (82928) Complex EM visit Add On G2211 Diagnoses Complex renal cyst N28.1
--- OUTSIDE RECORDS SUMMARY | 2025-03-07 08:28 | XMS_ITS | Clinical Summary ---
Author Organization [facility] Address [address] [place] [address] Care Team Providers Care Hold Worker Name Role Phone Doug Garcia MD Primary [...] Vaccine (2023-2 5 season) 2025 RSV Vaccine 50 years and old er and Patients (1 - 1-dose 75+ series) 2032 Hepatitis B Vaccines Aged Out No long er eligible based on patient's age to complete this topic Insurance [facility] MEDICARE Care Teams Hold Worker Relationship Specialty Start Date End Date Doug Garcia MD [address] [place] [id number] PCP - General Family Medicine 10/23/24
== END 2025-03-07 08:55 | disposition home or self-care (01) ==
LOC: HO.HUSH 08:13
PROVIDERS: PCP Nurse Practitioner Family; Visit Provider Nurse Practitioner Family
DX: Z13.9 Encounter for screening, unspecified (principal); N28.1 Cyst of kidney, acquired
CPT/HCPCS: 99213; G2211

== ENCOUNTER → 2025-03-07 08:12 | Outpatient (BNVA) | payer MEDICARE, SELFPAY | PROVIDERS: PCP Nurse Practitioner Family; Visit Provider Nurse Practitioner Family | DX: N28.1 Cyst of kidney, acquired (principal) | CPT/HCPCS: 81003; 99212 ==

== ENCOUNTER 2025-03-23 13:17 | Outpatient (REF) | payer MEDICARE, SELFPAY ==
--- OUTSIDE RECORDS SUMMARY | 2025-03-23 16:06 | XMS_ITS | Clinical Summary ---
Author Organization [facility] Address [address] [place] [address] Care Team Providers Care Laboratory Chief Name Role Phone Doug Garcia MD Primary Care Provider [phone] Allergies Active Allergy Reactions Criticality Noted Date [...] patient's age to complete this topic Insurance [facility] MEDICARE Care Teams Laboratory Chief Relationship Specialty Start Date End Date Doug Garcia MD [address] [place] [id number] PCP - General Family Medicine 10/23/24
[2025-03-23 16:24] LABS: Blood Urea Nitrogen 22 mg/dL (9-16); Estimated Glomerular Filt Rate > 60
== END 2025-03-23 13:18 | disposition home or self-care (01) ==
LOC: HO.HMGCLDS 13:17
PROVIDERS: PCP Nurse Practitioner Family; Visit Provider Nurse Practitioner Family
DX: R39.15 Urgency of urination (principal)
CPT/HCPCS: 36415; 82565; 84520

== ENCOUNTER 2025-03-31 13:57 | Outpatient (REF) | payer MEDICARE, SELFPAY ==
--- NOTE | ~2025-03-31 | CT_ITS ---
EXAMINATION: CT ABDOMEN AND PELVIS WITHOUT AND WITH CONTRAST CLINICAL INFORMATION: N28.1. Cyst of kidney, acquired. COMPARISON: Correlated to ultrasound renal dated March 01, 2025. TECHNIQUE: Multidetector volumetric imaging was performed of the abdomen and pelvis before and after the IV administration of 85 mL of Omnipaque 350 intravenous contrast.. Exam performed during the portal venous phase. Sagittal and coronal reformatted images were obtained on the technologist's workstation. No reported immediate complications This CT examination was performed using dose optimization techniques as appropriate, variously including the following: *Automated exposure control *Adjustment of mA and/or kV according to patient size (this includes techniques or standardized protocols for targeted exams where dose is matched to indication/reason for exam; i.e. extremities or head) *Use of iterative reconstruction technique DLP: 565 mGy-cm FINDINGS: Inadequate protocol demonstrated no arterial phase or delayed phase. LUNG BASES: No acute airspace disease or discrete pulmonary nodules. LIVER, GALLBLADDER, AND BILIARY TREE: Liver measures 17 cm. No solid or cystic mass. Main portal veins and hepatic veins are patent. [Status post cholecystectomy. No intrahepatic or extrahepatic biliary ductal dilatation. PANCREAS: No solid or cystic mass. No main pancreatic ductal dilatation. No peripancreatic fluid collections. SPLEEN: 10 cm. No solid or cystic lesion. ADRENAL GLANDS: 10 mm nodular lesions in the left adrenal gland measuring 20 Hounsfield units in the noncontrast phase. KIDNEYS AND URETERS: Right kidney: No hydronephrosis. No nephrolithiasis. There are few scattered less than 2.5 cm nonenhancing fluid density lesions in the, lumbar junction mostly lower pole and midportion. No enhancing renal mass.. No dilatation of the ureter. Left kidney: No hydronephrosis. No nephrolithiasis. Multifocal exophytic nonenhancing or thick septated fluid density lesions in the upper pole, lower pole and to a lesser extent midportion. The largest measures 6 cm. No enhancing mass. No dilatation of the ureter. BLADDER: Fluid-filled nearly collapsed. GASTROINTESTINAL TRACT: Gas and fluid-filled nondistended small bowel loops. Abundant stool large intestine. No intestinal wall thickening. No intestinal obstruction pattern. No pneumatosis intestinalis. I do not see the appendix. Terminal ileum is normal. ABDOMINAL WALL: No gross umbilical hernia. Small fat-containing inguinal hernia. LYMPH NODES: Nonspecific prominent mesenteric and retroperitoneum. VASCULAR: Mixed plaques abdominal aorta wall and iliac arteries without aneurysm or dissection. PELVIC VISCERA: 6 cm heterogeneous and enlarged prostate gland protruding upon the urinary bladder floor with hypodense areas in the posterior inferior aspect of the gland. There is a prominent seminal vesicles. OSSEOUS STRUCTURES: Multilevel thoracolumbar spondylosis without acute fracture or gross listhesis. Degenerative changes in the sacroiliac joints and coxofemoral joints. CT/CT abdomen pelvis wo/w IV con IMPRESSION: Bilateral Bosniak type I renal cysts. Benign prostate hyperplasia versus malignancy. 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 Hepatomegaly, mild. Fleischner guidelines were followed. Electronically signed by: Ronald Lopez MD 03/31/2025 03:57 PM PIEDAD
[2025-03-31] MEDS: iohexoL 350 MG/ML 100 ML INFUS..BTL 85 ML IV (15:28)
--- OUTSIDE RECORDS SUMMARY | 2025-03-31 17:22 | XMS_ITS | Clinical Summary ---
Author Organization [facility] Address [address] [place] [address] Care Team Providers Care Head Paper Tester Name Role Phone Doug Garcia MD Primary [...] patient's age to complete this topic Insurance [facility] MEDICARE Care Teams Head Paper Tester Relationship Specialty Start Date End Date Doug Garcia MD [address] [place] [id number] PCP - General Family Medicine 10/23/24
== END 2025-03-31 13:58 | disposition home or self-care (01) ==
LOC: HO.CT 13:57
PROVIDERS: PCP Nurse Practitioner Family; Visit Provider Nurse Practitioner Family
DX: N28.1 Cyst of kidney, acquired (principal)
CPT/HCPCS: 74178; Q9967

== ENCOUNTER → 2025-03-31 13:59 | Outpatient (BNV) | payer MEDICARE, SELFPAY | PROVIDERS: PCP Nurse Practitioner Family; Visit Provider Radiology Diagnostic Radiology | DX: N28.1 Cyst of kidney, acquired (principal) | CPT/HCPCS: 74178 ==

== ENCOUNTER 2025-04-06 12:58 | Outpatient (AMB) | payer MEDICARE, SELFPAY ==
--- NOTE | 2025-04-06 13:04 | A.OFFVIS_ITS ---
Intake Visit Reasons: 1m/CT Intake Note: patient presents today for: 1 mo follow up urology medications: allopurinol blood thinners: none imaging done:Abd/Pelvis CT 03/31/25 Dog Food Dough Mixer Required: No Accompanied by: Self / Same As Patient Allergies Penicillins Allergy (Unknown, Verified 04/06/25 14:06) Unknown Medication List - Last Reconciled 04/06/25 by LEV CabralesP- allopurinol 300 mg PO DAILY atenolol-chlorthalidone 50-25 mg 0.5 tabs PO DAILY empagliflozin 25 mg PO DAILY lisinopril 2.5 mg PO DAILY metformin 1,000 mg PO BID rosuvastatin 10 mg PO DAILY semaglutide (Ozempic) 0.5 mg (0.736 mL) subcut QWEEK HPI Comments Details: Eugene is a 69-year-old male patient of Dr. Hadley. He presents to the office today for follow-up of his renal cyst. Recent CT renal mass protocol results reviewed with the patient today. 04/12 bilateral Bosniak type 1 renal cysts. No hydronephrosis or nephrolithiasis noted. No enhancing renal masses. No dilatation of either kidney. The bladder is fluid-filled and nearly collapsed. 6 cm heterogeneous and enlarged prostate gland protruding upon the urinary bladder floor with hypodense areas in the posterior inferior aspect of the gland. PSA 03/12 2.7. When asked he does report episodes of nocturia however reports he typically drinks fluids prior to bed. He reports that althou gh he can experience nocturia 3-4 times per night he does not find this bothersome. We did discuss correlation of potential enlarged prostate with nocturia. He denies any signs or symptoms of sleep apnea. In office urinalysis results reviewed with the patient today. He otherwise denies any bothersome urinary issues. He denies urinary urgency, urinary frequency, incontinence, nocturia, hematuria, dysuria, foul smelling urine, changes to urinary stream, flank pain, fever, and or chills. He is happy with his current voiding parameters. PSAs are as follows: PSA 02/08 1.7, 02/09, 2.0, 03/12 2.7 Discussed at length renal cyst, classifications of the cyst, and renal masses. All questions were answered. He denies any other issues or concerns at this time. [facility] Surgical History H/O umbilical hernia repair Social History Housing: Apartment Patient Tobacco Use Status: Former Tobacco user e-Cigarette/Vaping Use: Never Used Second Hand Smoke Exposure: No service: No Current occupational status: retired Cognitive needs: No Hearing needs: No Vision needs: No Review of Systems Const All systems reviewed & are unremarkable except as noted in HPI and below Reports no additional complaints Eyes Reports no additional complaints ENT Reports no additional complaints Card Reports no additional complaints Resp Reports no additional complaints GI Reports no additional complaints Reports as per HPI Musc Reports no additional complaints Neuro Reports no additional complaints Psych Reports no additional complaints Endo Reports no additional complaints Crispin/Lymph Reports no additional complaints Aller/Immun Reports no additional complaints Physical Exam Const General: cooperative, healthy appearing, comfortable, no acute distress, well developed, alert and awake Orientation/consciousness: patient oriented x3 Limitations: no limitations HEENT Head: Yes normal to inspection, Yes normocephalic and Yes atraumatic Ears: hearing grossly normal bilaterally Eyes General: appearance normal, both eyes and all related structures Neck Neck: Yes normal visual inspection and Yes trachea midline Chest Chest palpation & inspection: normal inspection of the chest Resp Effort & Inspection: normal respiratory effort and able to speak in complete sentences Cardio Rate: regular rate GI Inspection: Yes normal to inspection General: Yes no CVA tenderness Back/Spine/Pelvis Back: no CVA tenderness Skin General skin exam: no rashes or lesions noted Neuro General: patient oriented x3 Extrem General: Yes normal to inspection Psych Appearance: grossly normal and well kempt Mental Status: mental status grossly normal Speech and movement: Clear speech present Affect: normal affect Attitude: cooperative Thought process: Normal thought process present Thought content: Normal thought content present Insight: Fair insight present (Psych) Judgement: Fair judgement present (Psych) Results AMB Urinalysis, Automated UA Leukoctes 0 Mateo/uL Last Edit by OVI Green on 04/06/25 13:19 UA Nitrite Negative Last Edit by OVI Green on 04/06/25 13:19 UA Urobilinogen 0.2 mg/dL Last Edit by Laurie Veras CCMA on 04/06/25 13:19 UA Protein 0 mg/dL Last Edit by Laurie Colon, [facility] on 04/06/25 13:19 UA pH 5.5 Last Edit by Laurie Colon, [facility] on 04/06/25 13:19 UA Blood 0 Ladarius/uL Last Edit by Laurie Colon, [facility] on 04/06/25 13:19 UA Specific [place] 1.010 Last Edit by Laurie Colon, [facility] on 04/06/25 13:1 9 UA Ketone Negative Last Edit by Laurie Colon, [facility] on 04/06/25 13:19 UA Bilirubin 0 mg/dL Last Edit by Laurie Colon, [facility] on 04/06/25 13:19 UA Glucose 1000 mg/dL Last Edit by Laurie Colon, [facility] on 04/06/25 13:19 Results Reviewed Results Reviewed: Laboratory Last Values Urine pH (Auto) 5.5 04/06/25 13:18 Specific [place] (Auto) 1.010 04/06/25 13:18 Urine Protein (Auto) 0 mg/dL 04/06/25 13:18 Glucose (UA)(Auto) 1000 mg/dL 04/06/25 13:18 Urine Ketones (Auto) Negative 04/06/25 13:18 Urine Blood (Auto) 0 Ladarius/uL 04/06/25 13:18 Urine Nitrite (Auto) Negative 04/06/25 13:18 Urine Bilirubin (Auto) 0 mg/dL 04/06/25 13:18 Urine Urobilinogen (Auto) 0.2 mg/dL 04/06/25 13:18 Leukocyte Esterase (Auto) 0 Mateo/uL 04/06/25 13:18 Date of Service: 03/31/25 Procedure(s): CT abdomen pelvis wo/w IV con FINDINGS: Inadequate protocol demonstrated no arterial phase or delayed phase. LUNG BASES: No acute airspace disease or discrete pulmonary nodules. LIVER, GALLBLADDER, AND BILIARY TREE: Liver measures 17 cm. No solid or cystic mass. Main portal veins and hepatic veins are patent. [Status post cholecystectomy. No intrahepatic or extrahepatic biliary ductal dilatation. PANCREAS: No solid or cystic mass. No main pancreatic ductal dilatation. No peripancreatic fluid collections. SPLEEN: 10 cm. No solid or cystic lesion. ADRENAL GLANDS: 10 mm nodular lesions in the left adrenal gland measuring 20 Hounsfield units in the noncontrast phase. KIDNEYS AND URETERS: Right kidney: No hydronephrosis. No nephrolithiasis. There are few scattered less than 2.5 cm nonenhancing fluid density lesions in the, lumbar junction mostly lower pole and midportion. No enhancing renal mass.. No dilatation of the ureter. Left kidney: No hydronephrosis. No nephrolithiasis. Multifocal exophytic nonenhancing or thick septated fluid density lesions in the upper pole, lower pole and to a lesser extent midportion. The largest measures 6 cm. No enhancing mass. No dilatation of the ureter. BLADDER: Fluid-filled nearly collapsed. GASTROINTESTINAL TRACT: Gas and fluid-filled nondistended small bowel loops. Abundant stool large intestine. No intestinal wall thickening. No intestinal obstruction pattern. No pneumatosis intestinalis. I do not see the appendix. Terminal ileum is normal. ABDOMINAL WALL: No gross umbilical hernia. Small fat-containing inguinal hernia. LYMPH NODES: Nonspecific prominent mesenteric and retroperitoneum. VASCULAR: Mixed plaques abdominal aorta wall and iliac arteries without aneurysm or dissection. PELVIC VISCERA: 6 cm heterogeneous and enlarged prostate gland protruding upon the urinary bladder floor with hypodense areas in the posterior inferior aspect of the gland. There is a prominent seminal vesicles. OSSEOUS STRUCTURES: Multilevel thoracolumbar spondylosis without acute fracture or gross listhesis. Degenerative changes in the sacroiliac joints and coxofemoral joints. CT/CT abdomen pelvis wo/w IV con IMPRESSION: Bilateral Bosniak type I renal cysts. Benign prostate hyperplasia versus malignancy. 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 Hepatomegaly, mild. Assessment & Plan Assessment & Plan (1) Complex renal cyst: Code(s): N28.1 - Cyst of kidney, acquired Category: Medical (2) Enlarged prostate: Code(s): N40.0 - Benign prostatic hyperplasia without lower urinary tract symptoms Category: Medical (3) Nocturia: Code(s): R35.1 - Nocturia Category: Medical Plan In office urinalysis results reviewed with the patient today; as noted above. Recent renal imaging results reviewed with the patient today; as noted above. Recent PSA results reviewed with the patient today; as noted above. All questions were answered. We discussed importance of limiting fluids 2-3 hours prior to bed to decrease episodes of nocturia. Will continue with surveillance monitoring of renal cysts, nocturia, and BPH. He reports be happy with current voiding parameters. Will obtain retroperitoneal ultrasound in 6 months. We also discussed the importance of management and diabetes for improvement in urological health as well as overall health and well-being. Will obtain PSA in 6 months Follow-up in 6months with imaging, PVR and PSA to be completed prior; or sooner with any issues, concerns, and or questions. Orders: Orders US retroperitoneal comp 6 Months N28.1 - Cyst of kidney, acquired, N40.0 - Benign prostatic hyperplasia without lower urinary tract symptoms Patient Instructions: The patient had an opportunity to ask questions regarding the treatment plan. All questions were answered. Physical exam, labs, and imaging were discussed and reviewed in detail. As well as risks, benefits, and discussion of treatment choices. No major barriers to understanding were identified. The patient expressed understanding and agreement with the above treatment plan. The patient was made aware they should contact our office by phone for worsening of their current condition, the appearance of new symptoms, or with any questions or concerns. Compliance is encouraged with any medications and follow up testing that is ordered. It is a privilege to be allowed the opportunity to participate in? your urological care.? Again, if you have any questions or concerns If you have any questions or concerns please do not hesitate to contact me. The office is [phone]. This note is constructed using voice recognition software. While every effort has been made to ensure accuracy manager of internal audit errors may have been included. Yours sincerely, CATARINO Cabrales Coding Level of Care Code Est Pt Level 3 (67548) Complex EM visit Add On G2211 Diagnoses Complex renal cyst N28.1 Enlarged prostate N40.0 Nocturia R35.1
--- OUTSIDE RECORDS SUMMARY | 2025-04-07 00:52 | XMS_ITS | Clinical Summary ---
Author Organization [facility] Address [address] [place] [address] Care Team Providers Care Locomotive Repairer Diesel Name Role Phone Doug Garcia MD Primary [...] patient's age to complete this topic Insurance [facility] [place] [id number] Care Teams Locomotive Repairer Diesel Relationship Specialty Start Date End Date Doug Garcia MD [address] [place] [id number] PCP - General Family Medicine 10/23/24
== END 2025-04-06 14:02 | disposition home or self-care (01) ==
LOC: HO.HUSH 12:59
PROVIDERS: PCP Nurse Practitioner Family; Visit Provider Nurse Practitioner Family
DX: N28.1 Cyst of kidney, acquired (principal); N40.0 Benign prostatic hyperplasia without lower urinary tract symptoms; R35.1 Nocturia
CPT/HCPCS: 99213; G2211

== ENCOUNTER → 2025-04-06 12:58 | Outpatient (BNVA) | payer MEDICARE, SELFPAY | PROVIDERS: PCP Nurse Practitioner Family; Visit Provider Nurse Practitioner Family | DX: N40.0 Benign prostatic hyperplasia without lower urinary tract symptoms (principal); R35.1 Nocturia; N28.1 Cyst of kidney, acquired; Z87.891 Personal history of nicotine dependence | CPT/HCPCS: 99212 ==